=== PATIENT | male | born 1965 | race Caucasian/White ===

== ENCOUNTER 2017-11-15 20:13 | Emergency (ER) | payer BC, OTHER ==
[~2017-11-15] VITALS: Ht 167.6 cm; Wt 63.5 kg
--- NOTE | 2017-11-15 22:32 | ED Back Pain ---
General Chief Complaint: Back Problems Stated Complaint: HEADACHE/NECK PAIN/LOWER BACK PAIN Nursing Triage Note: pt reports neck, back et severe head pain starting 2 weeks ago et worsening since then. he was seen at [facility] yesterday et had labs drawn, urine tested et rx for imitrex. he had an injection of toradol, norflex, et benadryl while there with an oral dose of magnesium. Nursing Sepsis Screen: No Definite Risk (SADIA STOUT MD) History of Present Illness Date Seen by Provider: Nov 15, 2017 Time Seen by Provider: 22:28 Initial Comments The patient is a 51-year-old white male who presents with a chief complaint of low back pain. In addition he apparently has a migraine headache and some pain in his neck at this time. The pain began about 2 weeks ago without injury. There has steadily gotten worse. They went to [facility] yesterday and had some blood tests done. No specific diagnosis was given. He was given some analgesic Injections. These were not at all successful. He reports the pain to be at about the L3 4 range by pointing. There is no radiation to the buttocks or down the legs. There is no numbness or tingling. There is no present or past history of injury. Pain/Injury Location: Back, Neck Method of Injury: Unknown (SADIA STOUT MD) Initial Comments Discussed the case with Dr. Hayden and to control and then visit the patient is story includes 2 weeks of low back pain radiating outward. She is either side as well as upper neck pain that radiates to his also put and around the left side of his head to behind the left eye. It has been intermittent and tolerable with Excedrin and Advil but the last 2 days it has become constant and intolerable. He went to the [place] emergency department where he was told he had a migraine headache and was given a dose of sumatriptan and Toradol which did nothing for his pain and sent home with a prescription for sumatriptan which she has been using with no relief. He is having some nausea but no throwing up. No cough, edema fevers, chills, shortness of breath, chest pain, diarrhea. He does not have a history of migraines or headaches beyond the last 2 weeks. No other significant medical history. He does smoke about a pack and a half a day. Patient denies any weight loss or history of cancer, prostate problems, incontinence or urinary hesitancy or frequency. (YANA BLAKE) Allergies and Home Medications Allergies Coded Allergies: No Known Drug Allergies (Unverified , 11/16/17) Constitutional: see HPI EENTM: no symptoms reported Respiratory: no symptoms reported Cardiovascular: no symptoms reported Gastrointestinal: no symptoms reported Genitourinary: no symptoms reported Musculoskeletal: back pain Skin: no symptoms reported Psychiatric/Neurological: No Symptoms Reported, Headache (SADIA STOUT MD) Past Qirfwhn-Yovbsm-Kcaftc Hx Patient Social History Recent Foreign Travel: No Contact w/Someone Who Travel: No Recent Infectious Disease Expo: No (SADIA STOUT MD) Physical Exam Vital Signs Vital Sign - Last 12Hours 11/15/17 21:27 Temp 98.0 Pulse 87 Resp 16 B/P (MAP) 141/86 (104) (YANA BLAKE) Vital Signs Capillary Refill : Less Than 3 Seconds (SADIA STOUT MD) General Appearance: Mild Distress, Moderate Distress, Other (prefers positioning himself on right side with knees flexed and tucked up) HEENT: Normal ENT Inspection Neck: Normal Inspection Cardiovascular: Regular Rate, Rhythm, No Edema, No Gallop, No JVD, No Murmur, Normal Peripheral Pulses Respiratory: Decreased Breath Sounds, Other (heavy odor of cigarette products) Gastrointestinal: Normal Bowel Sounds, No Organomegaly, No Pulsatile Mass, Non Tender, Soft Back: Normal Inspection, No Vertebral Tenderness Extremity: Normal Capillary Refill, Normal Inspection, Normal Range of Motion, Non Tender, No Calf Tenderness, No Pedal Edema, Calf Tenderness Neurologic/Psychiatric: Alert, Oriented x3, No Motor/Sensory Deficits, Normal Mood/Affect, civil rights representative II-XII Norm as Tested, Abnormal Cerebellar Tests Skin: Normal Color, Warm/Dry, Cool, Cyanosis Lymphatic: No Adenopathy (SADIA STOUT MD) Progress/Results/Core Measures Results/Orders Lab Results Laboratory Tests Test 11/15/17 22:45 11/15/17 22:46 Range/Units Urine Color YELLOW Urine Clarity CLEAR Urine pH 8 5-9 Urine Specific Stafford 1.010 L 1.016-1.022 Urine Protein NEGATIVE NEGATIVE Urine Glucose (UA) NEGATIVE NEGATIVE Urine Ketones NEGATIVE NEGATIVE Urine Nitrite NEGATIVE NEGATIVE Urine Bilirubin NEGATIVE NEGATIVE Urine Urobilinogen NORMAL NORMAL MG/DL Urine Leukocyte Esterase NEGATIVE NEGATIVE Urine RBC (Auto) NEGATIVE NEGATIVE Urine RBC NONE /HPF Urine WBC RARE /HPF Urine Crystals NONE /LPF Urine Bacteria NEGATIVE /HPF Urine Casts NONE /LPF Urine Mucus NEGATIVE /LPF Urine Culture Indicated NO White Blood Count 9.8 4.3-11.0 10^3/uL Red Blood Count 5.22 4.35-5.85 10^6/uL Hemoglobin 16.8 13.3-17.7 G/DL Hematocrit 47 40-54 % Mean Corpuscular Volume 90 80-99 FL Mean Corpuscular Hemoglobin 32 25-34 PG Mean Corpuscular Hemoglobin Concent 36 32-36 G/DL Red Cell Distribution Width 14.6 H 10.0-14.5 % Platelet Count 268 130-400 10^3/uL Mean Platelet Volume 9.4 7.4-10.4 FL Neutrophils (%) (Auto) 59 42-75 % Lymphocytes (%) (Auto) 31 12-44 % Monocytes (%) (Auto) 7 0-12 % Eosinophils (%) (Auto) 2 0-10 % Basophils (%) (Auto) 1 0-10 % Neutrophils # (Auto) 5.8 1.8-7.8 X 10^3 Lymphocytes # (Auto) 3.1 1.0-4.0 X 10^3 Monocytes # (Auto) 0.7 0.0-1.0 X 10^3 Eosinophils # (Auto) 0.2 0.0-0.3 10^3/uL Basophils # (Auto) 0.1 0.0-0.1 10^3/uL Sodium Level 139 135-145 MMOL/L Potassium Level 3.8 3.6-5.0 MMOL/L Chloride Level 105 98-107 MMOL/L Carbon Dioxide Level 22 21-32 MMOL/L Anion Gap 12 5-14 MMOL/L Blood Urea Nitrogen 9 7-18 MG/DL Creatinine 0.85 0.60-1.30 MG/DL Estimat Glomerular Filtration Rate > 60 BUN/Creatinine Ratio 11 Glucose Level 92 70-105 MG/DL Calcium Level 9.3 8.5-10.1 MG/DL Total Bilirubin 0.5 0.1-1.0 MG/DL Aspartate Amino Transf (AST/SGOT) 17 5-34 U/L Alanine Aminotransferase (ALT/SGPT) 15 0-55 U/L Alkaline Phosphatase 97 40-136 U/L Total Protein 7.0 6.4-8.2 GM/DL Albumin 4.1 3.2-4.5 GM/DL (YANA BLAKE) My Orders Orders - YANA BLAKE Ct Head/Cervical Spine Wo (11/16/17 00:14) Ketorolac Injection (Toradol Injection) (11/16/17 00:15) Ondansetron Injection (Zofran Injectio (11/16/17 00:15) Saline Lock/Iv-Start (11/16/17 00:15) Fentanyl Injection (Sublimaze Injection (11/16/17 00:30) Fentanyl Injection (Sublimaze Injection (11/16/17 01:30) (YANA BLAKE) Medications Given in ED Current Medications Medications Dose Ordered Sig/Raphael Route Start Time Stop Time Status Last Admin Dose Admin Fentanyl Citrate 50 mcg ONCE ONCE IVP 11/16/17 00:30 11/16/17 00:31 DC 11/16/17 00:30 50 MCG Fentanyl Citrate 50 mcg ONCE ONCE IVP 11/16/17 01:30 11/16/17 01:31 DC 11/16/17 01:40 50 MCG Ketorolac Tromethamine 15 mg ONCE ONCE IVP 11/16/17 00:15 11/16/17 00:16 DC 11/16/17 00:30 15 MG Ondansetron HCl 4 mg ONCE ONCE IVP 11/16/17 00:15 11/16/17 00:16 DC 11/16/17 00:30 4 MG (YANA BLAKE) Vital Signs/I&O Vital Sign - Last 12Hours 11/15/17 21:27 Temp 98.0 Pulse 87 Resp 16 B/P (MAP) 141/86 (104) (YANA BLAKE) Blood Pressure Mean: 104 Progress Note #1: Time: 00:13 Progress Note Recent new onset of headaches that are not clearly migraines. No history of migraines. His back pain could be chronic as he does have historical low back pain but his headache although it has no neurologic red flags came on rather suddenly and is very strong and not responding to pain meds or crepitance. We' ll going to get a CT scan of his head Progress Note #2: Time: 02:10 Progress Note Patient's nausea is gone but his headache is still there constant. We have not been able to locate any source of infection, tumor, injury that would explain his headache. None of her medications for migraines or opiates or NSAIDs have made it didn't in his pain. Give him some more Phenergan and Benadryl helps at the sedative effect allow him to sleep this off. At the very least we've ruled out any dangerous infectious or surgical cause of his headache that needs to be addressed tonight. It is not getting any worse would have him follow-up with his primary care physician. This has been going on for 2 weeks so we'll give him strict return precautions as well as follow-up with his PCP next week. (YANA BLAKE) Diagnostic Imaging Diagonstic Imaging: Xray Plain Films/CT/US/NM/MRI: other (lumbar spine) Comments No fracture or subluxation of the lumbar vertebral spine. Vertebral body heights are maintained. Bowel gas pattern unremarkable. Reviewed: Reviewed by Me Diagonstic Imaging: CT Plain Films/CT/US/NM/MRI: head Comments CT head no acute intracranial abnormality CT C-spine no evidence of fracture or subluxation and moderate multilevel cervical spondylosis. Reviewed: Reviewed by Me (YANA BLAKE) Departure Impression Impression: Primary Impression: Headache Qualified Codes: R51 - Headache Disposition: 01 HOME, SELF-CARE Condition: Stable Departure-Patient Inst. Decision time for Depature: 02:12 (YANA BLAKE) Referrals: NO,LOCAL PHYSICIAN (PCP/Family) Primary Care Physician Patient Instructions: Headache, Adult (DC) Add. Discharge Instructions: Tylenol 1000 g every 8 hours and/or ibuprofen 800 mg every 8 hours. Get some rest and follow-up with your primary care physician Saturday morning. If your symptoms comes get worse or you begin to have new symptoms such as chest pain, fever, intractable nausea vomiting please return to the ER for further evaluation. You can use the Zofran every 6 hours as needed for nausea. All discharge instructions reviewed with patient and/or family. Voiced understanding. Scripts Ondansetron (Zofran Odt) 4 Mg Tab.rapdis 4 MG PO Q6H Y for NAUSEA/VOMITING-1ST LINE, #10 TAB 0 Refills Prov: YANA BLAKE 11/16/17 SADIA STOUT MD Nov 15, 2017 22:32 YANA BLAKE Nov 16, 2017 00:14
[2017-11-15 22:56] LABS: BILIRUBIN,URINE NEGATIVE (NEGATIVE); CLARITY,URINE CLEAR; COLOR,URINE YELLOW; GLUCOSE, URINE (UA) NEGATIVE (NEGATIVE); KETONES,URINE NEGATIVE (NEGATIVE); LEUKOCYTE ESTERASE ,URINE NEGATIVE (NEGATIVE); NITRITE,URINE NEGATIVE (NEGATIVE); PH,URINE 8 (5-9); PROTEIN,URINE NEGATIVE (NEGATIVE); UROBILINOGEN,URINE NORMAL (NORMAL)
[2017-11-15 22:57] LABS: BASOPHILS # (AUTO) 0.1 10^3/uL (0.0-0.1); BASOPHILS % (AUTO) 1 % (0-10); EOSINOPHILS # (AUTO) 0.2 10^3/uL (0.0-0.3); EOSINOPHILS % (AUTO) 2 % (0-10); HEMATOCRIT 47 % (40-54); HEMOGLOBIN 16.8 G/DL (13.3-17.7); LYMPHOCYTES # (AUTO) 3.1 X 10^3 (1.0-4.0); LYMPHOCYTES % (AUTO) 31 % (12-44); MEAN CORPUSCULAR HEMOGLOBIN 32 PG (25-34); MEAN CORPUSCULAR HGB CONC 36 G/DL (32-36); MEAN CORPUSCULAR VOLUME 90 FL (80-99); MEAN PLATELET VOLUME 9.4 FL (7.4-10.4); MONOCYTES # (AUTO) 0.7 X 10^3 (0.0-1.0); MONOCYTES % (AUTO) 7 % (0-12); NEUTROPHILS # (AUTO) 5.8 X 10^3 (1.8-7.8); NEUTROPHILS % (AUTO) 59 % (42-75); PLATELET COUNT 268 10^3/uL (130-400); RED BLOOD COUNT 5.22 10^6/uL (4.35-5.85); RED CELL DISTRIBUTION WIDTH 14.6 % (10.0-14.5); WHITE BLOOD COUNT 9.8 10^3/uL (4.3-11.0)
[2017-11-15 23:04] LABS: BACTERIA,URINE NEGATIVE /HPF; WBC,URINE RARE /HPF
[2017-11-15 23:19] LABS: ALANINE AMINOTRANSFERASE 15 U/L (0-55); ALBUMIN 4.1 GM/DL (3.2-4.5); ALKALINE PHOSPHATASE 97 U/L (40-136); BILIRUBIN,TOTAL 0.5 MG/DL (0.1-1.0); BUN/CREATININE RATIO 11; CALCIUM 9.3 MG/DL (8.5-10.1); CARBON DIOXIDE 22 MMOL/L (21-32); CHLORIDE 105 MMOL/L (98-107); CREATININE SERUM 0.85 MG/DL (0.60-1.30); GFR ESTIMATED > 60; GLUCOSE 92 MG/DL (70-105); POTASSIUM 3.8 MMOL/L (3.6-5.0); SODIUM 139 MMOL/L (135-145)
[2017-11-16] MEDS ORDERED: KETOROLAC 30 MG/ML VIAL IVP ONE (00:15)
[2017-11-16] MEDS ORDERED: ONDANSETRON 4 MG/2 ML (SDV) Z0FRAN IVP ONE (00:15)
[2017-11-16] MEDS ORDERED: fentaNYL INJECTION 100 MCG/2 ML AMP IVP ONE ×2 (00:30→01:30)
[2017-11-16] MEDS ORDERED: ONDA4TAB8 PO ×2 (02:15→02:35)
[2017-11-16] MEDS ORDERED: PROMETHAZINE INJ 25 MG/ML (PHENERGAN) AMP IVP ONE (02:15)
[2017-11-16] MEDS ORDERED: diphenhydrAMINE 50 MG/ML INJ (BENADRYL) IVP ONE (02:15)
[2017-11-16 02:40] VITALS: BP 135/74
--- NOTE | 2017-11-16 06:21 | Diagnostic Imaging Report ---
Clinical indication: Patient with headache and neck pain. No known injury. Exam: Head CT without IV contrast. Axial CT scan of the cervical spine with sagittal and coronal reformations. Comparison: None. Findings: Head CT: There is no evidence of acute cerebral infarct, intracranial hemorrhage, or gross mass effect. There is normal suarez-white matter distinction. The brain parenchymal volume appears appropriate for patient's age. There is no significant midline shift or herniation. There is no evidence of hydrocephalus. The basal cisterns are unremarkable. The skull, extracranial soft tissue, and orbits are unremarkable. There is mild mucosal thickening in both maxillary sinuses. Cervical spine: There is no acute cervical spine fracture or dislocation. There is multilevel cervical spine degenerative disease. There is suggestion of diffuse disc bulges at the C4-C5, C5-C6, and C6-C7 levels. There is uncinate spurs bilaterally at the C5-C6 and C6-C7 levels which cause moderate to severe bilateral C6-C7 neural foramen narrowing and moderate to severe left C5-C6 neural foramen narrowing. There is moderate loss of intervertebral disc height at the C5-C6 and C6-C7 levels. There is at least mild to moderate central canal narrowing at the C5-C6 and C6-C7 levels. There is no significant neck soft tissue abnormality. Visualized upper lung capps are clear. Impression: 1: Mild bilateral maxillary sinus disease. Otherwise unremarkable CT scan of the brain. 2: Multilevel cervical spine degenerative disease with no acute fracture or dislocation. MRI of the cervical spine would better evaluate degenerative disease. I agree with [employer] report. Dictated by: Dictated on workstation # [id number]
--- NOTE | 2017-11-16 07:03 | Diagnostic Imaging Report ---
CLINICAL INDICATION: Patient with low back pain and no known injury. EXAMINATION: X-ray of the lumbar spine, three views. COMPARISON: None. FINDINGS: There is no evidence of acute fracture or dislocation. There is subtle left curvature of the lumbar spine. There are hypertrophic anterior spurs seen throughout the lumbar spine which is most pronounced at the L1-L2 level. There is mild loss of intervertebral disc height at the L1-L2 level. Sacroiliac joints are unremarkable as visualized. The intervertebral disc heights are well maintained. Surgical clips are seen overlying the right upper quadrant which could be related to cholecystectomy changes. IMPRESSION: 1: Mild lumbar spine degenerative disease and subtle left curvature of the lumbar spine. 2: There is no acute fracture or dislocation of the lumbar spine. Dictated by: Dictated on workstation # [id number]
--- OUTSIDE RECORDS SUMMARY | 2017-11-17 09:29 | XMS REPORT ---
Author Author Raymond Lebron Organization [facility] Address [address] [place], [place] [id number] Care Team Providers Care Manager Food Beverage Name Role Phone Raymond Lebron PCP Unavailable Allergies and Adverse Reactions Name Reaction Notes SULFA (SULFONAMIDES) Plan of Treatment Planned Activity Comments Planned Date Planned Time Plan/Goal X-ray of pelvis, one or two views 05/21/2017 12:00 AM Hemoglobin A1c measurement 05/21/2017 12:00 AM PSA TOTAL 05/21/2017 12:00 AM Medications Active Name Start Date Estimated Completion Date SIG Comments naproxen 500 mg oral tablet take 1 tablet (500 mg) by oral route 2 times per day as needed atenolol 25 mg oral tablet take 1 tablet (25 mg) by oral route once daily tramadol 50 mg oral tablet 05/13/2017 take 1 tablet (50 mg) by oral route every 6 hours as needed Neurontin 100 mg oral capsule 05/21/2017 05/28/2017 take one tab PO TID Problem List Not available. Vital Signs Date Time BP-Sys(mm[Hg] BP-Maria Del Carmen(mm[Hg]) HR(bpm) RR(rpm) Temp WT HT HC BMI BSA BMI Percentile O2 Sat(%) 05/21/2017 10:31:00 AM 118 mmHg 80 mmHg 83 bpm 18 rpm 98 F 130 lbs 66 in 20.98 kg/m2 1.66 m2 99 % 05/13/2017 1:31:00 PM 122 mmHg 78 mmHg 74 bpm 16 rpm 97 F 141.5 lbs 66 in 22.8385 kg/m 1.7288 m 99 % Social History Name Description Comments Tobacco Current every day smoker Alcohol Use - Occasional [employer] Worker History of Procedures Not available. Results Summary Not available. History Of Immunizations Not available. History of Past Illness Name Date of Onset Comments Heart murmur Right groin pain May 13 2017 1:38PM Groin pain May 21 2017 11:04AM Glycosuria May 21 2017 11:59AM BPH (benign prostatic hyperplasia) May 21 2017 11:59AM Screening for prostate cancer May 21 2017 11:59AM Payers Insurance Name Company Name Plan Name Plan Number Policy Number Policy Group Number Start Date [facility] [id number] N/A History of Encounters Visit Date Visit Type Provider 05/21/2017 Office visit Raymond Lebron MD 05/13/2017 Office visit Alexi Schmidt APRN 12/15/2015 [facility] Dk Ye MD 02/04/2015 [facility] Dk Ye MD 05/11/2012 [facility] Dk Ye MD 10/26/2011 [facility] Leonel Waters MD
--- OUTSIDE RECORDS SUMMARY | 2017-11-17 09:29 | XMS REPORT ---
Author Author Alexi Schmidt [facility] Address [address] [place], [place] [id number] Care Team Providers Care Middleware Developer Name Role Phone Alexi Schmidt PCP Allergies and Adverse Reactions Name Reaction Notes SULFA (SULFONAMIDES) Plan of Treatment Not available. Medications Active Name Start Date Estimated Completion Date SIG Comments atenolol 25 mg oral tablet take 1 tablet (25 mg) by oral route once daily diclofenac sodium 50 mg oral tablet,delayed release (DR/EC) 06/11/2017 take 1 tablet (50 mg) by oral route 3 times per day cyclobenzaprine 10 mg oral tablet 06/11/2017 take 1 tablet (10 mg) by oral route 2 times per day Name Start Date Expiration Date SIG Comments naproxen 500 mg oral tablet take 1 tablet (500 mg) by oral route 2 times per day as needed Neurontin 100 mg oral capsule 05/21/2017 05/28/2017 take one tab PO TID Discontinued Name Start Date Discontinued Date SIG Comments baclofen 10 mg oral tablet 05/28/2017 06/11/2017 take 1 tablet (10 mg) by oral route 3 times per day tramadol 50 mg oral tablet 05/28/2017 06/11/2017 take 1 tablet (50 mg) by oral route every 6 hours as needed Problem List Description Status Onset Glucosuria Active 05/21/2017 Groin pain, right Active 05/21/2017 Current smoker Active 05/21/2017 Vital Signs Date Time BP-Sys(mm[Hg] BP-Maria Del Carmen(mm[Hg]) HR(bpm) RR(rpm) Temp WT HT HC BMI BSA BMI Percentile O2 Sat(%) 06/11/2017 2:14:00 PM 120 mmHg 70 mmHg 82 bpm 16 rpm 142 lbs 66 in 22.92 kg/m2 1.73 m2 99 % 05/28/2017 8:25:00 AM 118 mmHg 78 mmHg 93 bpm 20 rpm 96.3 F 137.25 lbs 66 in 22.1525 kg/m 1.7027 m 90 % 05/21/2017 10:31:00 AM 118 mmHg 80 mmHg 83 bpm 18 rpm 98 F 130 lbs 66 in 20.98 kg/m2 1.66 m2 99 % 05/13/2017 1:31:00 PM 122 mmHg 78 mmHg 74 bpm 16 rpm 97 F 141.5 lbs 66 in 22.8385 kg/m 1.7288 m 99 % Social History Name Description Comments Tobacco Current every day smoker Alcohol Use - Occasional [employer] Worker History of Procedures Date Ordered Description Order Status 05/21/2017 12:00 AM X-RAY EXAM OF PELVIS Reviewed 05/21/2017 12:00 AM GLYCOSYLATED HEMOGLOBIN TEST Reviewed 05/21/2017 12:00 AM ASSAY OF PSA TOTAL Reviewed 05/21/2017 2:06 PM URINALYSIS AUTO W/O SCOPE Reviewed 06/11/2017 12:00 AM AUTOMATED DIFF WBC COUNT Reviewed 06/11/2017 12:00 AM COMPREHEN METABOLIC PANEL Reviewed 06/11/2017 12:00 AM ASSAY OF MAGNESIUM Reviewed Results Summary Date and Description Results 05/21/2017 12:10 PM PSA TOTAL 2.280 ng/mLHGB A1C 5.60 %Est Avg Glucose 114.0 mg/ dL 05/21/2017 2:06 PM Clarity Ur CLEAR Color Ur ---- Glucose Ur-sCnc 2+ Bilirub Ur Ql Strip -VE Ketones Ur Ql Strip -VE Sp Gr Ur Qn 1015 Hgb Ur Ql Strip -VE pH Ur- LsCnc 6,0 Prot Ur Ql Strip -VE Urobilinogen Ur-mCnc -VE Nitrite Ur Ql Strip -VE WBC Est Ur Ql Strip -VE 06/11/2017 2:42 PM WBC 9.1 RBC 4.56 HGB 14.70 g/dLHCT 41.30 %MCV 91.0 fLMCH 32.20 pgMCHC 35.60 g/dLRDW SD 48 RDW CV 14.30 %MPV 8.90 fLPLT 267 NRBC# 0.00 NRBC% 0.0 %NEUT 56.70 %%LYMP 31.70 %%MONO 7.70 %%EOS 2.90 %%BASO 0.90 %#NEUT 5.17 #LYMP 2.89 #MONO 0.70 #EOS 0.26 #BASO 0.08 MANUAL DIFF NOT IND GLUCOSE 102.0 mg/dLSODIUM 141.0 mmol/LPOTASSIUM 4.0 mmol/LCHLORIDE 108.0 mmol/LCO2 27.0 mmol/LBUN 11.0 mg/dLCREATININE 0.80 mg/dLSGOT/AST 14.0 IU/LSGPT/ALT 13.0 IU/ LALK PHOS 86.0 IU/LTOTAL PROTEIN 6.60 g/dLALBUMIN 3.90 g/dLTOTAL BILI 0.30 mg/ dLCALCIUM 9.40 mg/dLAGE 51 GFR NonAA 102 GFR AA 124 eGFR >60 mL/min/1.73meGFR AA* >60 MAGNESIUM 2.0 mg/dL History Of Immunizations Not available. History of Past Illness Name Date of Onset Comments Heart murmur Glucosuria 05/21/2017 Groin pain, right 05/21/2017 Current smoker 05/21/2017 Right groin pain May 13 2017 1:38PM Groin pain May 21 2017 11:04AM Glycosuria May 21 2017 11:59AM BPH (benign prostatic hyperplasia) May 21 2017 11:59AM Screening for prostate cancer May 21 2017 11:59AM Groin pain, right May 21 2017 10:34AM Glucosuria May 21 2017 10:34AM Current smoker May 21 2017 10:34AM Groin pain, right Jun 11 2017 2:15PM Leg cramps Jun 11 2017 2:15PM Right groin pain May 28 2017 8:30AM Constipation, unspecified constipation type Jun 11 2017 2:15PM Acute nonintractable headache, unspecified headache type Jun 11 2017 2:15PM Payers Insurance Name Company Name Plan Name Plan Number Policy Number Policy Group Number Start Date [facility] [id number] N/A History of Encounters Visit Date Visit Type Provider 06/11/2017 Office visit Alexi Schmidt APRN 05/28/2017 Office visit Alexi Schmidt APRN 05/21/2017 Office visit Raymond Lebron MD 05/13/2017 Office visit Alexi Schmidt APRN 12/15/2015 [facility] Dk Ye MD 02/04/2015 [facility] Dk Ye MD 05/11/2012 [facility] Dk Ye MD 10/26/2011 [facility] Leonel Waters MD
--- OUTSIDE RECORDS SUMMARY | 2017-11-17 09:29 | XMS REPORT ---
Author Author Raymond Lebron Organization [facility] Address [address] [place], [place] [phone] Care Team Providers Care Film Processing Supervisor Name Role Phone Raymond Lebron PCP Unavailable Allergies and Adverse Reactions Name Reaction Notes SULFA (SULFONAMIDES) Plan of Treatment Planned Activity Comments Planned Date Planned Time Plan/Goal X-ray of pelvis, one or two views 05/21/2017 12:00 AM Medications Active Name Start [...] 1:38PM Groin pain May 21 2017 11:04AM Payers Insurance Name Company Name Plan Name Plan Number Policy Number Policy Group Number [id number] History of Encounters Visit Date Visit Type Provider 05/21/2017 Office visit Raymond Lebron MD 05/13/2017 Office visit Alexi Schmidt APRN 12/15/2015 [facility] Dk Ye MD 02/04/2015 [facility] Dk Ye MD 05/11/2012 [facility] Dk Ye MD 10/26/2011 [facility] Leonel Waters MD
--- OUTSIDE RECORDS SUMMARY | 2017-11-17 09:29 | XMS REPORT | CCD ---
Author Author SATHYA LEAL Organization Unknown Address [address] [facility] [address] [place] [address] Care Team Providers Care Developer Automatic Name Role Phone IGOR RICK MD Attphys IGOR RICK MD Prisurg Allergies Allergy Code Allergy Type Reaction Status SULFA (sulfonamide) 0 Drug allergy RASH Active BACTRIM 726075 Drug allergy Active Active Medications Unknown or Not Available. Problems Problem Code Start Date Resolved Date Status CVA (CEREBRAL INFARCTION) 83844 05/13/2012 Active CONVERSION REACTION 37532 05/13/2012 Active Procedures Procedure Code Procedure Type Date ^CBC W/AUTO DIFF 4107559 SNOMED CT 10/26/2016 INFLUENZA A & B 916238588 SNOMED CT 10/26/2016 C REACTIVE PROTEIN 92109884 SNOMED CT 10/26/[address] 10/26/[address] 10/26/2016 COMPREHENSIVE METABOLIC PANEL 169038672 SNOMED CT 2016 CBC W/ AUTO DIFF (RFLX MAN DIFF IF IND) 1836944 SNOMED CT 10/26/2016 Results AMYLASE - Collect Date/Time: 10/26/2016 03:15 Test Name Code Test Result Test Units Test Ref Range AMYLASE 1798-8 51 IU/L L=25 H=125 COMPREHENSIVE METABOLIC PANEL - Collect Date/Time: 10/26/2016 03:15 Test Name Code Test Result Test Units Test Ref Range GLUCOSE 2345-7 124 MG/DL L=70 H=100 SODIUM 2951-2 140 MEQ/L L=135 H=148 POTASSIUM 2823-3 3.3 MEQ/L L=3.5 H=5.3 CHLORIDE 2075-0 104 MEQ/L L=96 H=110 CO2 2028-9 25 MEQ/L L=22 H=29 BUN 3094-0 7 MG/DL L=8 H=22 CREATININE 2160-0 0.8 MG/DL L=0.6 H=1.6 SGOT/AST 1920-8 12 IU/L L=10 H=40 SGPT/ALT 1742-6 9 IU/L L=8 H=54 ALK PHOS 6768-6 109 IU/L L=35 H=115 TOTAL PROTEIN 2885-2 6.4 G/DL L=5.5 H=8.5 ALBUMIN 1751-7 3.8 G/DL L=3.1 H=5.4 TOTAL BILI 1975-2 0.3 MG/DL L=0.0 H=1.5 CALCIUM 16732-4 8.6 MG/DL L=8.2 H=10.6 AGE 50 yrs GFR NonAA 103 GFR AA 125 eGFR >60 N/A eGFR AA* >60 N/A LIPASE - Collect Date/Time: 10/26/2016 03:15 Test Name Code Test Result Test Units Test Ref Range LIPASE 3040-3 16 U/L L=8 H=78 CBC W/ AUTO DIFF (RFLX MAN DIFF IF IND) - Collect Date/Time: 10/26/2016 03:15 Test Name Code Test Result Test Units Test Ref Range WBC 88074-3 10.9 TH/CMM L=4.5 H=10.8 RBC 789-8 4.93 ML/CMM L=4.70 H=6.10 HGB 718-7 15.2 G/DL L=14.0 H=18.0 HCT 4544-3 44.5 % L=42.0 H=52.0 MCV 90 FL L=81 H=99 MCH 30.8 PG L=27.0 H=33.0 MCHC 34.2 G/DL L=31.0 H=36.0 RDW SD 45 FL L=36 H=50 RDW CV 13.5 % L=0.0 H=14.8 MPV 9.0 FL L=9.3 H=12.5 PLT 777-3 292 TH/CMM L=130 H=440 NRBC# 0.00 TH/CMM L=0.00 H=0.00 NRBC% 0.0 /100WBC L=0.0 H=2.0 %NEUT 78.3 % %LYMP 15.8 % %MONO 4.2 % %EOS 0.8 % %BASO 0.6 % #NEUT 8.54 TH/CMM L=2.10 H=8.20 #LYMP 1.73 TH/CMM L=0.90 H=5.20 #MONO 0.46 TH/CMM L=0.16 H=1.00 #EOS 0.09 TH/CMM L=0.00 H=0.80 #BASO 0.07 TH/CMM L=0.00 H=0.20 MANUAL DIFF NOT IND N/A INFLUENZA A & B - Collect Date/Time: 10/26/2016 03:10 Test Name Code Test Result Test Units Test Ref Range INFLUENZA A & B 6437-8 NO INFLUENZA A OR B DETECTED N/A C REACTIVE PROTEIN - Collect Date/Time: 10/26/2016 03:15 Test Name Code Test Result Test Units Test Ref Range C REACTIVE PROTEIN 1988-5 <0.5 MG/DL L=0.0 H= 1.0 Function Status Unknown or Not Available. History of Immunizations Immunization Code Date Influenza, seasonal, injectable 141 10/27/2011 Plan of Treatment Unknown or Not Available. Social History Smoking Status Code Start Date End Date Current every day smoker 209923119 Vital Signs Unknown or Not Available. Function Status Unknown or Not Available. Goals Unknown or Not Available. ASSESSMENTS Unknown or Not Available. Health Concerns Section Unknown or Not Available.
--- OUTSIDE RECORDS SUMMARY | 2017-11-17 09:30 | XMS REPORT ---
Author Author Raymond Lebron Organization [facility] Address [address] [place], [place] [address] Care Team Providers Care Loftsman/Woman Name Role Phone Raymond Lebron PCP Unavailable [...] take one tab PO TID Problem List Description Status Onset Glucosuria Active [...] - Occasional [employer] Worker History of Procedures Date Ordered Description Order Status 05/21/2017 12:00 AM X-RAY EXAM OF PELVIS Reviewed 05/21/2017 12:00 AM GLYCOSYLATED HEMOGLOBIN TEST Reviewed 05/21/2017 12:00 AM ASSAY OF PSA TOTAL Reviewed 05/21/2017 2:06 PM URINALYSIS AUTO W/O SCOPE Reviewed Results Summary Date and Description Results [...] -VE WBC Est Ur Ql Strip -VE History Of Immunizations Not available. History of [...] 10:34AM Current smoker May 21 2017 10:34AM Payers Insurance Name Company Name Plan Name Plan Number Policy Number Policy Group Number Start Date [facility] [id number] N/A History of Encounters Visit Date Visit Type Provider 05/21/2017 Office visit Raymond Lebron MD 05/13/2017 Office visit Alexi Schmidt APRN 12/15/2015 [facility] Dk Ye MD 02/04/2015 [facility] Dk Ye MD 05/11/2012 [facility] Dk Ye MD 10/26/2011 [facility] Leonel Waters MD
--- OUTSIDE RECORDS SUMMARY | 2017-11-17 09:30 | XMS REPORT | CCD ---
Author Author CHRIS AYALA Organization Unknown Address [address] [facility] [address] [place], [place] [phone] Care Team Providers Care Inspector Heating And Refrigeration Name Role Phone HANDSHY ER, JOSLYN WATERS Attphys HANDSHY ER, JOSLYN WATERS Prisurg Vital Signs Unknown or Not Available. Allergies Unknown or Not Available. Procedures Procedure Code Procedure Type Date .[place]ZO QU[place] 865382397 SNOMED CT 02/04/2015 CERVICAL SPINE; 2 VIEWS OR [address] HEAD W/O CONTRAST 195678580 SNOMED CT 02/04/2015 ^CBC W/AUTO DIFF 1545368 SNOMED CT 02/04/2015 RAPID DRUG SCREEN 518505585 SNOMED CT 02/04/2015 URINALYSIS ONLY 415051782 SNOMED [address] 02/04/[address] 02/04/2015 LACTIC ACID 2039429 SN[address] 02/04/2015 CULTURE BLOOD 36297535 SNOMED CT 02/04/2015 TROPONIN-I ADV 134735549 SNOMED CT 02/04/2015 COMPREHENSIVE METABOLIC PANEL 728758072 SNOMED CT 2014 CBC W/ AUTO DIFF (RFLX MAN DIFF IF IND) 9669290 SNOMED CT 02/04/2015 History of Immunizations Unknown or Not Available. Problems Unknown or Not Available. Results COMPREHENSIVE METABOLIC PANEL - Collect Date/Time: 02/04/2015 18:20 Test Name Code Test Result Test Units Test Ref Range GLUCOSE 2345-7 224 MG/DL L=70 H=100 SODIUM 2951-2 137 MEQ/L L=135 H=148 POTASSIUM 2823-3 3.4 MEQ/L L=3.5 H=5.3 CHLORIDE 2075-0 105 MEQ/L L=96 H=110 CO2 2028-9 21 MEQ/L L=22 H=29 BUN 3094-0 15 MG/DL L=8 H=22 CREATININE 2160-0 1.0 MG/DL L=0.6 H=1.6 SGOT/AST 1920-8 18 IU/L L=10 H=40 SGPT/ALT 1742-6 16 IU/L L=8 H=54 ALK PHOS 6768-6 78 IU/L L=35 H=115 TOTAL PROTEIN 2885-2 6.4 G/DL L=5.5 H=8.5 ALBUMIN 1751-7 4.2 G/DL L=3.1 H=5.4 TOTAL BILI 1975-2 0.8 MG/DL L=0.0 H=1.5 CALCIUM 55277-8 8.8 MG/DL L=8.2 H=10.6 AGE 49 yrs GFR NonAA 80 GFR AA 97 eGFR >60 N/A eGFR AA* >60 N/A ALCOHOL - Collect Date/Time: 02/04/2015 18:20 Test Name Code Test Result Test Units Test Ref Range ETHANOL 5640-8 <10 MG/DL RAPID DRUG SCREEN - Collect Date/Time: 02/04/2015 18:27 Test Name Code Test Result Test Units Test Ref Range Cannabinoids (THC) NEGATIVE N/A NEG: < 50 ng/ ml Phencyclidine (PCP) NEGATIVE N/A NEG: < 25 ng/ ml Cocaine NEGATIVE N/A NEG: < 300 ng/ml Methamphetamine NEGATIVE N/A NEG: < 1000 ng/ml Opiates NEGATIVE N/A NEG: < 300 ng/ml Amphetamine NEGATIVE N/A NEG: < 1000 ng/ml Benzodiazepines NON-NEGATIVE N/A NEG: < 300 ng/ ml Tricyclic Antidepres NEGATIVE N/A NEG: < 300 ng/ ml Methadone NEGATIVE N/A NEG: < 300 ng/ml Barbiturates NEGATIVE N/A NEG: < 200 ng/ml Oxycodone NEGATIVE N/A NEG: < 100 ng/ml Propoxyphene (PPX) NEGATIVE N/A NEG: < 300 ng/ ml CBC W/ AUTO DIFF (RFLX MAN DIFF IF IND) - Collect Date/Time: 02/04/2015 18:20 Test Name Code Test Result Test Units Test Ref Range WBC 03800-7 9.0 TH/CMM L=4.5 H=10.8 RBC 789-8 5.23 ML/CMM L=4.70 H=6.10 HGB 718-7 16.9 G/DL L=14.0 H=18.0 HCT 4544-3 48.4 % L=42.0 H=52.0 MCV 93 FL L=81 H=99 MCH 32.3 PG L=27.0 H=33.0 MCHC 34.9 G/DL L=31.0 H=36.0 RDW SD 48 FL L=36 H=50 RDW CV 14.0 % L=0.0 H=14.8 MPV 9.6 FL L=9.3 H=12.5 PLT 777-3 220 TH/CMM L=130 H=440 NRBC# 0.00 TH/CMM L=0.00 H=0.00 NRBC% 0.0 /100WBC L=0.0 H=2.0 %NEUT 67.0 % %LYMP 25.0 % %MONO 5.7 % %EOS 1.9 % %BASO 0.4 % #NEUT 6.01 TH/CMM L=2.10 H=8.20 #LYMP 2.24 TH/CMM L=0.90 H=5.20 #MONO 0.51 TH/CMM L=0.16 H=1.00 #EOS 0.17 TH/CMM L=0.00 H=0.80 #BASO 0.04 TH/CMM L=0.00 H=0.20 MANUAL DIFF NOT IND N/A URINALYSIS ONLY - Collect Date/Time: 02/04/2015 18:27 Test Name Code Test Result Test Units Test Ref Range COLOR YELLOW N/A NL: YELLOW APPEARANCE CLEAR N/A NL: CLEAR SPEC GRAV 1.010 N/A NL: 1.002 - 1.022 pH 6.0 N/A NL: 5 - 9 PROTEIN NEGATIVE N/A NL: NEGATIVE mg/dl GLUCOSE NEGATIVE N/A NL: NEGATIVE mg/dl KETONE 40 N/A NL: NEGATIVE mg/dl BILIRUBIN SMALL N/A NL: NEGATIVE BLOOD NEGATIVE N/A NL: NEGATIVE NITRITE NEGATIVE N/A NL: NEGATIVE LEUK SCREEN NEGATIVE N/A NL: NEGATIVE WBC/HPF RARE N/A NL: NEGATIVE RBC/HPF RARE N/A NL: NEGATIVE CASTS/LPF 1+ HYALINE N/A NL: NEGATIVE CRYSTALS TRACE AMORPH N/A NL: NEGATIVE MUCOUS THRDS FEW N/A NL: NEGATIVE BACTERIA FEW N/A NL: NEGATIVE EPITH CELLS FEW SQUAMOUS N/A NL: NEGATIVE TRICHOMONAS NEGATIVE N/A NL: NEGATIVE YEAST NEGATIVE N/A NL: NEGATIVE TROPONIN-I ADV - Collect Date/Time: 02/04/2015 18:20 Test Name Code Test Result Test Units Test Ref [place] 1978[address]-1 <0.04 ng/mL L=0.04 H= 0.40 LACTIC ACID - Collect Date/Time: 02/04/2015 18:20 Test Name Code Test Result Test Units Test Ref Range LACTIC ACID 2524-7 0.8 mmol/L L=0.5 H=1.6 Active Medications Unknown or Not Available. Medications Administered During Visit Unknown or Not Available. Encounters Encounter Diagnosis Diagnosis Code Start Date DEPRESSIVE DISORDER NEC 311 02/04/2015 Social History Smoking Status Code Start Date End Date Current every day smoker [id number] Patient Decision Aids Unknown or Not Available. Discharge Instructions You were admitted to [facility] on 02/04/2015 with a principal diagnosis of DEPRESSIVE DISORDER NEC. You were discharged from [facility] on 02/04/2015. Should you have any questions prior to discharge, please contact a member of your healthcare team. If you have left the hospital and have any questions, please contact your primary care physician. Chief Complaint and Reason For Visit Chief Complaint Date of Onset UNRESPONSIVE Function Status Unknown or Not Available. Referral/Transition of Care Unknown or Not Available.
--- OUTSIDE RECORDS SUMMARY | 2017-11-17 09:30 | XMS REPORT ---
Author Author Alexi Schmidt [facility] Address [address] [place], [place] [address] Care Team Providers Care Refrigeration Brazer/Solderer Name Role Phone Alexi Schmidt PCP Allergies [...] every day smoker Alcohol Use - Occasional [employer] Worker History of Procedures Date Ordered Description Order Status 05/21/2017 12:00 AM X-RAY EXAM OF PELVIS Reviewed 05/21/2017 12:00 AM GLYCOSYLATED HEMOGLOBIN TEST Reviewed 05/21/2017 12:00 AM ASSAY OF PSA TOTAL Reviewed 05/21/2017 2:06 PM URINALYSIS AUTO W/O SCOPE Reviewed 06/11/2017 12:00 AM AUTOMATED DIFF WBC COUNT Returned 06/11/2017 12:00 AM COMPREHEN METABOLIC PANEL Returned 06/11/2017 12:00 AM ASSAY OF MAGNESIUM Returned Results Summary Date and Description Results 05/21/2017 [...] Right groin pain May 28 2017 8:30AM Payers Insurance Name Company Name Plan Name Plan Number Policy Number Policy Group Number Start Date [facility] [id number] N/A History of Encounters Visit Date Visit Type Provider 06/11/2017 Office visit Alexi Schmidt APRN 05/28/2017 Office visit Alexi Schmidt APRN 05/21/2017 Office visit Raymond Lebron MD 05/13/2017 Office visit Alexi Schmidt APRN 12/15/2015 [facility] Dk Ye MD 02/04/2015 [facility] Dk Ye MD 05/11/2012 [facility] Dk Ye MD 10/26/2011 [facility] Leonel Waters MD
--- OUTSIDE RECORDS SUMMARY | 2017-11-17 09:30 | XMS REPORT | Continuity of Care Document ---
Author Author [facility] Address Unknown Phone Unavailable Allergies There is no data. Medications There is no data. Problems There is no data. Procedures There is no data. Results There is no data. Encounters ACCT No. Visit Date/Time Discharge Status Pt. Type Provider Facility Loc./Unit Complaint [id number] 06/11/2017 15:07:07 06/11/2017 23:59:59 CLS Outpatient Alexi Schmidt [id number] 05/28/2017 09:19:00 05/28/2017 23:59:59 CLS Outpatient Alexi Schmidt [id number] 05/22/2017 11:41:18 05/22/2017 23:59:59 CLS Outpatient Raymond Lebron [id number] 05/13/2017 14:29:39 05/13/2017 23:59:59 CLS Outpatient Alexi Schmidt [id number] 01/18/2016 15:57:40 01/18/2016 23:59:59 CLS Outpatient Dk Ye [id number] 05/30/2015 22:28:50 05/30/2015 23:59:59 CLS Outpatient Dk Ye
--- OUTSIDE RECORDS SUMMARY | 2017-11-17 09:30 | XMS REPORT ---
Author Author Alexi Schmidt [facility] Address [address] [place], [place] [address] Care Team Providers Care Lower School Spanish Teacher Name Role Phone Alexi Schmidt PCP Allergies [...] every 6 hours as needed Problem List Not available. Vital Signs Date Time BP-Sys(mm[Hg] BP-Maria Del Carmen(mm[Hg]) HR(bpm) RR(rpm) Temp WT HT HC BMI BSA BMI Percentile O2 Sat(%) 05/13/2017 1:31:00 PM 122 mmHg 78 mmHg 74 bpm 16 rpm 97 F 141.5 lbs 66 in 22.84 kg/m2 1.73 m2 99 % Social History Name Description Comments Tobacco Current every day smoker Alcohol Use - Occasional [employer] Worker History of Procedures Not available. Results Summary Not available. History Of Immunizations Not available. History of Past Illness Name Date of Onset Comments Heart murmur Right groin pain May 13 2017 1:38PM Payers Insurance Name Company Name Plan Name Plan Number Policy Number Policy Group Number [id number] N/A History of Encounters Visit Date Visit Type Provider 05/13/2017 Office visit Alexi Schmidt APRN 12/15/2015 [facility] Dk Ye MD 02/04/2015 [facility] Dk Ye MD 05/11/2012 [facility] Dk Ye MD 10/26/2011 [facility] Leonel Waters MD
== END 2017-11-16 02:40 | disposition home or self-care (01) ==
LOC: ER 20:17
DX: R51 Headache (principal); M54.5 Low back pain
CPT/HCPCS: 36415; 70450; 72100; 72125; 80053; 81000; 85025

== ENCOUNTER → 2019-08-25 | Outpatient (CLI) | payer BC ==
[~2019-08-25] MED LIST: CATHETER FLUSH 10 ML SYR IV PRN; HOLD METFORMIN - RECEIVED CONTRAST 20 ML VIAL IV SCH; IOHEXOL 350 MG/ML 100 ML (OMNIPAQUE 350) VIAL IV ONE; NS 100 ML (IVPB) BAG IV ONE; ONDA4TAB8 PO
[2019-08-25 10:26] LABS: BASOPHILS # (AUTO) 0.1 10^3/uL (0.0-0.1); BASOPHILS % (AUTO) 1 % (0-10); EOSINOPHILS # (AUTO) 0.1 10^3/uL (0.0-0.3); EOSINOPHILS % (AUTO) 1 % (0-10); HEMATOCRIT 46 % (40-54); HEMOGLOBIN 15.3 G/DL (13.3-17.7); LYMPHOCYTES # (AUTO) 2.2 X 10^3 (1.0-4.0); LYMPHOCYTES % (AUTO) 23 % (12-44); MEAN CORPUSCULAR HEMOGLOBIN 31 PG (25-34); MEAN CORPUSCULAR HGB CONC 34 G/DL (32-36); MEAN CORPUSCULAR VOLUME 93 FL (80-99); MEAN PLATELET VOLUME 8.7 FL (7.4-10.4); MONOCYTES # (AUTO) 0.7 X 10^3 (0.0-1.0); MONOCYTES % (AUTO) 7 % (0-12); NEUTROPHILS # (AUTO) 6.5 X 10^3 (1.8-7.8); NEUTROPHILS % (AUTO) 68 % (42-75); PLATELET COUNT 276 10^3/uL (130-400); RED CELL DISTRIBUTION WIDTH 14.6 % (10.0-14.5); WHITE BLOOD COUNT 9.5 10^3/uL (4.3-11.0)
[2019-08-25 10:43] LABS: BUN/CREATININE RATIO 9; CREATININE SERUM 0.82 MG/DL (0.60-1.30); GFR ESTIMATED > 60
--- NOTE | 2019-08-25 11:32 | Diagnostic Imaging Report ---
PROCEDURE: CT angiography of the chest with contrast. TECHNIQUE: Multiple contiguous axial images were obtained through the chest after uneventful bolus administration of intravenous contrast. 3D reconstructed CTA MIP acquisitions were also performed. Auto Exposure Controls were utilized during the CT exam to meet ALARA standards for radiation dose reduction. INDICATION: Shortness of breath, chest pain, difficulty breathing and asthma. FINDINGS: There is some mild centrilobular emphysematous disease. There are no discrete pulmonary nodules or masses. There is some minimal scarring in the right lung base. There is no pleural or pericardial fluid. There is no pneumothorax. The thoracic aorta is normal in caliber without evidence of dissection. There are no filling defects within the pulmonary arteries to suggest pulmonary embolism. There is no pathologically enlarged adenopathy in the chest. The visualized intra-abdominal structures are unremarkable. There is mild diffuse thoracic spondylosis. IMPRESSION: No evidence of pulmonary embolism or aortic dissection. Centrilobular emphysematous disease with some minimal scarring in the right lung base. Degenerative changes in the spine. Dictated by: Dictated on workstation # [id number]
== END ==
LOC: LAB 10:15
PROVIDERS: ATTEND Internal Medicine Critical Care Medicine
DX: J98.4 Other disorders of lung (principal); Z72.0 Tobacco use
CPT/HCPCS: 36415; 71275; 82565; 84520; 85025

== ENCOUNTER 2020-05-06 10:35 | Emergency (ER) | payer BC ==
[~2020-05-06] VITALS: Ht 167 cm; Wt 63.9 kg
[~2020-05-06 10:35] MED LIST changes: -CATHETER FLUSH 10 ML SYR IV PRN; -HOLD METFORMIN - RECEIVED CONTRAST 20 ML VIAL IV SCH; -IOHEXOL 350 MG/ML 100 ML (OMNIPAQUE 350) VIAL IV ONE; -NS 100 ML (IVPB) BAG IV ONE
[2020-05-06] MEDS ORDERED: ASPIRIN 81 MG CHEW (CHILDREN'S ASA) PO ONE (10:45)
[2020-05-06 10:57] LABS: BASOPHILS # (AUTO) 0.1 10^3/uL (0.0-0.1); BASOPHILS % (AUTO) 1 % (0-10); EOSINOPHILS # (AUTO) 0.1 10^3/uL (0.0-0.3); EOSINOPHILS % (AUTO) 1 % (0-10); HEMATOCRIT 51 % (40-54); HEMOGLOBIN 17.8 G/DL (13.3-17.7); LYMPHOCYTES # (AUTO) 2.4 X 10^3 (1.0-4.0); LYMPHOCYTES % (AUTO) 24 % (12-44); MEAN CORPUSCULAR HEMOGLOBIN 32 PG (25-34); MEAN CORPUSCULAR HGB CONC 35 G/DL (32-36); MEAN CORPUSCULAR VOLUME 91 FL (80-99); MEAN PLATELET VOLUME 8.9 FL (7.4-10.4); MONOCYTES # (AUTO) 0.6 X 10^3 (0.0-1.0); MONOCYTES % (AUTO) 6 % (0-12); NEUTROPHILS # (AUTO) 6.6 X 10^3 (1.8-7.8); NEUTROPHILS % (AUTO) 68 % (42-75); PLATELET COUNT 285 10^3/uL (130-400); RED CELL DISTRIBUTION WIDTH 14.9 % (10.0-14.5); WHITE BLOOD COUNT 9.8 10^3/uL (4.3-11.0)
[2020-05-06] MEDS ORDERED: ALBU2.5V4 (11:04)
[2020-05-06] MEDS ORDERED: DILT240C53 (11:04)
[2020-05-06] MEDS ORDERED: BUDE10.2 (11:04)
[2020-05-06] MEDS ORDERED: ATEN50TA (11:04)
[2020-05-06] MEDS ORDERED: TIOT4MIS2 (11:04)
--- NOTE | 2020-05-06 11:05 | Diagnostic Imaging Report ---
INDICATION: Shortness of air. Time of exam 10:50 AM No prior studies are available for comparison. The heart size is normal. The pulmonary vascularity is unremarkable. The lungs are clear. No infiltrate, effusion or pneumothorax is detected. Impression: No acute cardiopulmonary process is detected. Dictated by: Dictated on workstation # [id number]
--- NOTE | 2020-05-06 11:07 | NUR ---
JACOB HERE OVER TO SEE THE PTIlene
[2020-05-06 11:14] LABS: PROTHROMBIN TIME PATIENT 13.2 SEC (12.2-14.7)
--- NOTE | 2020-05-06 11:14 | ED Cough/URI ---
General Chief Complaint: Respiratory Problems Stated Complaint: SOA Nursing Triage Note: ARRIVED VIA AMB FROM DR ORELLANA OFFICE. COMPLAINS OF INCREASED SOA OVER THE LAST SEVERAL WEEKS. PT STATES HE NEEDS HELP FIGURING OUT WHAT HE HAS SO HE CAN GET ON DISSABILITY. STATES HE HAS BEEN MISSING WORK AND IS "ABOUT TO BE FIRED". ALSO STATES HE HAS NO AIR IN HIS HOME. Sepsis Screen: No Definite Risk Source: patient Exam Limitations: no limitations History of Present Illness Date Seen by Provider: May 06, 2020 Time Seen by Provider: 11:09 Initial Comments To ER from Dr. Nunez's office where he had an appointment for shortness of breath. He reported more shortness of breath than usual so they referred him to the emergency room. Dr. Nunez is out of town. States he needs help figuring out what he has to do to get on disability because he's been missing a lot of work and about to get fired and has no air conditioning in his home. He continues to smoke cigarettes. Timing/Duration: constant Severity/Quality: mild Associated Symptoms: cough, shortness of breath Allergies and Home Medications Allergies Coded Allergies: Sulfa (Sulfonamide Antibiotics) (Verified Allergy, Unknown, 05/06/20) Home Medications Cefuroxime Axetil 250 Mg Tablet, 250 MG PO BID Prescribed by: JACOB SANDERS on 05/06/20 1115 Ondansetron 4 Mg Tab.rapdis, 4 MG PO Q6H PRN for NAUSEA/VOMITING-1ST LINE Prescribed by: YANA BLAKE on 11/16/17 0235 Prednisone 20 Mg Tab, 40 MG PO DAILY Prescribed by: JACOB SANDERS on 05/06/20 1115 Patient Home Medication List Home Medication List Reviewed: Yes Review of Systems Review of Systems Constitutional: see HPI EENTM: see HPI Respiratory: see HPI, cough, short of breath Genitourinary: no symptoms reported Musculoskeletal: no symptoms reported Skin: no symptoms reported Psychiatric/Neurological: No Symptoms Reported Hematologic/Lymphatic: No Symptoms Reported Immunological/Allergic: no symptoms reported Past Kdklxkt-Rgugej-Mgfktl Hx Patient Social History Recent Foreign Travel: No Contact w/Someone Who Travel: No Recent Infectious Disease Expo: No Recent Hopitalizations: No Seasonal Allergies Seasonal Allergies: No Physical Exam Vital Signs - First Documented 05/06/20 10:40 Temp 36.7 Pulse 61 Resp 16 B/P (MAP) 158/83 (108) Pulse Ox 100 O2 Delivery Room Air Capillary Refill : Less Than 3 Seconds Height: 5'6.00" Weight: 140lbs. oz. 63.779100uk; 22.00 BMI Method:Stated General Appearance: WD/WN, no apparent distress, other (no distress. Oxygen 100% on room air. Speaks in full sentences. When taxing on his phone and distracted his respiratory rate is normal. However when I begin conversation with him and asked him what is going on his respiratory rate increases to about 30/m. Oxygen saturation remains 100% on room air. Lung sounds are clear.) Respiratory: lungs clear, normal breath sounds, no respiratory distress, no accessory muscle use Cardiovascular: regular rate, rhythm, no murmur Gastrointestinal: normal bowel sounds, non tender, soft Extremities: normal range of motion, non-tender Neurologic/Psychiatric: alert, normal mood/affect, oriented x 3 Skin: normal color, warm/dry Progress/Results/Core Measures Suspected Sepsis Recent Fever Within 48 Hours: No Infection Criteria Present: None New/Unexplained Altered Menta: No Sepsis Screen: No Definite Risk SIRS Temperature: Pulse: 61 Respiratory Rate: 16 Laboratory Tests 05/06/20 10:48: White Blood Count 9.8 Blood Pressure 158 /83 Mean: 108 Laboratory Tests 05/06/20 10:48: INR Comment 1.0, Platelet Count 285 Results/Orders Lab Results Laboratory Tests Test 05/06/20 10:48 Range/Units White Blood Count 9.8 4.3-11.0 10^3/uL Red Blood Count 5.54 4.35-5.85 10^6/uL Hemoglobin 17.8 H 13.3-17.7 G/DL Hematocrit 51 40-54 % Mean Corpuscular Volume 91 80-99 FL Mean Corpuscular Hemoglobin 32 25-34 PG Mean Corpuscular Hemoglobin Concent 35 32-36 G/DL Red Cell Distribution Width 14.9 H 10.0-14.5 % Platelet Count 285 130-400 10^3/uL Mean Platelet Volume 8.9 7.4-10.4 FL Neutrophils (%) (Auto) 68 42-75 % Lymphocytes (%) (Auto) 24 12-44 % Monocytes (%) (Auto) 6 0-12 % Eosinophils (%) (Auto) 1 0-10 % Basophils (%) (Auto) 1 0-10 % Neutrophils # (Auto) 6.6 1.8-7.8 X 10^3 Lymphocytes # (Auto) 2.4 1.0-4.0 X 10^3 Monocytes # (Auto) 0.6 0.0-1.0 X 10^3 Eosinophils # (Auto) 0.1 0.0-0.3 10^3/uL Basophils # (Auto) 0.1 0.0-0.1 10^3/uL Prothrombin Time 13.2 12.2-14.7 SEC INR Comment 1.0 0.8-1.4 Activated Partial Thromboplast Time 28 24-35 SEC My Orders Orders - JACOB SANDERS COUNTERSINKER [employer]ANCE SCREW HOLE Cbc With Automated Diff (05/06/20 10:39) Magnesium (05/06/20 10:39) Chest 1 View, Ap/Pa Only (05/06/20 10:39) Ekg Tracing (05/06/20 10:39) Comprehensive Metabolic Panel (05/06/20 10:39) Myoglobin Serum (05/06/20 10:39) Protime With Inr (05/06/20 10:39) Partial Thromboplastin Time (05/06/20 10:39) O2 (05/06/20 10:39) Monitor-Rhythm Ecg Trace Only (05/06/20 10:39) Lipid Panel (05/07/20 06:00) Ed Iv/Invasive Line Start (05/06/20 10:39) BNP (05/06/20 10:39) Troponin I (05/06/20 10:39) Aspirin Chewable Tablet (Baby Aspirin Ch (05/06/20 10:45) Medications Given in ED Current Medications Medications Dose Ordered Sig/Raphael Route Start Time Stop Time Status Last Admin Dose Admin Aspirin 324 mg ONCE ONCE PO 05/06/20 10:45 05/06/20 10:46 DC 05/06/20 10:54 324 MG Vital Signs/I&O 05/06/20 10:40 Temp 36.7 Pulse 61 Resp 16 B/P (MAP) 158/83 (108) Pulse Ox 100 O2 Delivery Room Air Capillary Refill : Less Than 3 Seconds Blood Pressure Mean: 108 Diagnostic Imaging Diagonstic Imaging: Xray Plain Films/CT/US/NM/MRI: chest Comments NAME: CARMEN WHITE MED REC#: [id number] PT STATUS: REG ER : 1965 PHYSICIAN: JACOB SANDERS APRN ADMIT DATE: 05/06/20/ER Draft Date of Exam:05/06/20 CHEST 1 VIEW, AP/PA ONLY INDICATION: Shortness of air. Time of exam 10:50 AM No prior studies are available for comparison. The heart size is normal. The pulmonary vascularity is unremarkable. The lungs are clear. No infiltrate, effusion or pneumothorax is detected. Impression: No acute cardiopulmonary process is detected. Dictated on workstation # [id number] Dict: 05/06/20 1103 Trans: 05/06/20 1104 [facility] [id number] Interpreted by: BENJAMÍN MOCTEZUMA MD Electronically signed by: Departure Impression Primary Impression: COPD exacerbation Disposition: 01 HOME, SELF-CARE Condition: Stable Departure-Patient Inst. Decision time for Depature: 11:11 Referrals: NO,LOCAL PHYSICIAN (PCP) Primary Care Physician MILES VALDEZ FIT MODEL (Family) Primary Care Physician Patient Instructions: Exacerbation of COPD Add. Discharge Instructions: If you wish to reduce or prevent further lung damage, you must quit smoking. If you don't, you will get worse. Steroids and antibiotics as directed. Follow-up with primary care to discuss your disability concerns. All discharge instructions reviewed with patient and/or family. Voiced understanding. Scripts Prednisone (Prednisone) 20 Mg Tab 40 MG PO DAILY, #6 TAB 0 Refills Prov: JACOB SANDERS APRN 05/06/20 Cefuroxime Axetil (Cefuroxime) 250 Mg Tablet 250 MG PO BID, #10 TAB Prov: JACOB SANDERS APRN 05/06/20 Work/School Note: Work Release Form Date Seen in the Emergency Department: May 06, 2020 Return to Work: May 08, 2020 JACOB SANDERS APRN May 06, 2020 11:14
[2020-05-06] MEDS ORDERED: CEFU250T80 PO (11:15)
[2020-05-06] MEDS ORDERED: PRD20T PO (11:15)
[2020-05-06 11:19] LABS: ALBUMIN 4.2 GM/DL (3.2-4.5); CHLORIDE 108 MMOL/L (98-107); POTASSIUM 3.9 MMOL/L (3.6-5.0); SODIUM 140 MMOL/L (135-145)
[2020-05-06 11:20] LABS: CALCIUM 9.3 MG/DL (8.5-10.1)
[2020-05-06 11:22] LABS: GLUCOSE 105 MG/DL (70-105); TOTAL PROTEIN 7.2 GM/DL (6.4-8.2)
[2020-05-06 11:23] LABS: CARBON DIOXIDE 19 MMOL/L (21-32)
[2020-05-06 11:24] LABS: BILIRUBIN,TOTAL 0.3 MG/DL (0.1-1.0)
[2020-05-06 11:25] LABS: ALKALINE PHOSPHATASE 111 U/L (40-136); CREATININE SERUM 0.91 MG/DL (0.60-1.30); GFR ESTIMATED > 60
[2020-05-06 11:26] LABS: BUN/CREATININE RATIO 18
[2020-05-06 11:28] LABS: ALANINE AMINOTRANSFERASE 11 U/L (0-55); MAGNESIUM 2.2 MG/DL (1.6-2.4)
--- NOTE | 2020-05-06 11:30 | NUR ---
RESTING IN BED ET DENIES NEEDS. NOTIFIED WE WERE WAITING ON LABS TO COME BACK.
[2020-05-06 11:52] VITALS: BP 131/79
--- OUTSIDE RECORDS SUMMARY | 2020-05-06 12:27 | XMS REPORT | CCD ---
Author Author CARMEN MCCLENDON Organization Unknown Address [address] [facility] [address] [place] [address] Care Team Providers Care Freight Air Brake Fitter Name Role Phone IZABELLA ZALDIVAR DO Attphys Allergies Allergy Code Allergy Type Reaction Status SULFA (sulfonamide) 0 Drug allergy RASH Active Active Medications Unknown or Not Available. Problems Problem Code Start Date Resolved Date Sta tus CVA (CEREBRAL INFARCTION) 84690 05/13/2012 Active CONVERSION REACTION 61527 05/13/2012 Active Procedures Procedure Code Procedure Type Date US EXTREMITY SONO, NONVASCULAR, LIMITED 495937183 SN OMED CT 05/07/2017 Results Unknown or Not Available. Function Status Unknown or Not Available. History of Immunizations Immunization Code Date pneumococcal polysaccharide PPV23 33 06/11/2017 pneumococcal polysaccharide PPV23 33 07/02/2017 Influenza, seasonal, injectable, preservative free 140 06/11/2017 Influenza, seasonal, injectable 141 Plan of Treatment Unknown or Not Available. Social History Smoking Status Code Start Date End Date Current every day smoker 227620732 Vital Signs Unknown or Not Available. Function Status Unknown or Not Available. Goals Unknown or Not Available. ASSESSMENTS Unknown or Not Available. Health Concerns Section Unknown or Not Available.
--- OUTSIDE RECORDS SUMMARY | 2020-05-06 12:27 | XMS REPORT ---
Patient Summary 2.1 Created on: CARMEN WHITE : 1965 Sex: Male Author Author CARMEN SANTAMARIA Organization Unknown Address [address] [facility] [address] [place], [place] [id number] Care Team Providers Care Scarf And Anneal Operator Name Role Phone Watchlist AMBER Adames MD Attending JOSÉ MIGUEL EVANS APRN [facility] AMBER Adames MD Unavailable Functional Status No Data Found Immunization Immunization Date Status Additional Notes Code Code System pneumococcal polysaccharide PPV23 Completed 33 CVX pneumococcal polysaccharide PPV23 Completed 33 CVX Influenza, seasonal, injectable, preservative free 06/11/2017 Completed 140 CVX Influenza, seasonal, injectable 10/27/2011 Completed 141 CVX influenza, injectable, quadrivalent, preservative free 10/28/2018 Completed 150 CVX Mental Status No Data Found Results COMPREHENSIVE METABOLIC PANEL - Collect Date/Time: 05/07/2019 06:22 [facility] ID: [id number] [address] [facility] [address], [place], [phone] [employer] ID: [id number] [address] [facility] [address], [place], [phone] LOINC: 82347-5 Test Value Unit Reference Range Code Code System GLUCOSE 83 MG/DL L=70 H=100 2345-7 LOINC SODIUM 142 MEQ/L L=135 H=148 2951-2 LOINC POTASSIUM 4.2 MEQ/L L=3.5 H=5.3 2823-3 LOINC CHLORIDE 106 MEQ/L L=96 H=110 2075-0 LOINC CO2 27 MEQ/L L=22 H=29 2028-9 LOINC BUN 9 MG/DL L=8 H=22 3094-0 LOINC CREATININE 0.78 MG/DL L=0.72 H=1.25 2160-0 LOINC SGOT/AST 12 IU/L L=10 H=40 1920-8 LOINC SGPT/ALT 12 IU/L L=8 H=54 1742-6 LOINC ALK PHOS 83 IU/L L=40 H=150 6768-6 LOINC TOTAL PROTEIN 5.8 G/DL L=5.5 H=8.5 2885-2 LOINC ALBUMIN 3.6 G/DL L=3.1 H=5.4 1751-7 LOINC TOTAL BILI 0.3 MG/DL L=0.0 H=1.5 1975-2 LOINC CALCIUM 9.2 MG/DL L=8.2 H=10.6 09533-7 LOINC AGE 53 yrs GFR NonAA 105 GFR AA 127 eGFR 105 mL/min/1.7 eGFR AA* >60 CBC W/ AUTO DIFF (RFLX MAN DIFF IF IND) - Collect Date/Time: 05/07/2019 06:22 [employer] ID: [id number] [address], [place], [place], [phone] [facility] [employer] ID: [id number] [address], [place], [place], [phone] LOINC: 71680-3 Test Value Unit Reference Range Code Code System WBC 6.1 TH/CMM L=4.5 H=10.8 62379-7 LOINC RBC 4.47 ML/CMM L=4.70 H=6.10 789-8 LOINC HGB 14.3 G/DL L=14.0 H=18.0 718-7 LOINC HCT 43.0 % L=42.0 H=52.0 4544-3 LOINC MCV 96 FL L=81 H=99 MCH 32.0 PG L=27.0 H=33.0 MCHC 33.3 G/DL L=31.0 H=36.0 RDW SD 50 FL L=36 H=50 RDW CV 13.9 % L=0.0 H=14.8 MPV 9.3 FL L=9.3 H=12.5 PLT 218 TH/CMM L=130 H=440 777-3 LOINC NRBC# 0.00 TH/CMM L=0.00 H=0.00 NRBC% 0.0 /100WBC L=0.0 H=2.0 %NEUT 45.9 % %LYMP 41.0 % %MONO 8.4 % %EOS 3.5 % %BASO 1.0 % #NEUT 2.78 TH/CMM L=2.10 H=8.20 #LYMP 2.48 TH/CMM L=0.90 H=5.20 #MONO 0.51 TH/CMM L=0.16 H=1.00 #EOS 0.21 TH/CMM L=0.00 H=0.80 #BASO 0.06 TH/CMM L=0.00 H=0.20 MANUAL DIFF NOT IND ABDOMEN ACUTE SERIES - Completed: 2018 06:42 LOINC: EXAMINATION:ABDOMEN ACUTE SERIESREASON F OR EXAM:Abdominal Pain COMPARISON:There is a chest x-ray dated April 28, 2019. There is a abdomen x-ray dated May 06, 2019.FINDINGS:Supine and upright views of the abdomen demonstrate no free air under the diaphragms. The small-bowel loops are less prominent. There is colonic gas. No significant air-fluid level is seen. Surgical clips are seen in the gallbladder fossa. Soft tissue contours and bony structures are unremarkable.Accompanying upright chest x-ray demonstrates normal cardiac silhouette, mediastinum and pulmonary vascularity. The lungs are well aerated and clear without evidence of infiltrate, pleural effusion or pneumothorax.IMPRESSION:1.No acute cardiopulmonary disease is seen. 2.There are some air-filled loops of small bowel. These are less prominent than on the previous study. There is some colonic gas. 3.No free air or air-fluid level is seen. Reviewed and Electronically Signed by: Lloyd Petersen MD DABRSigned Date/Time: 05/07/2019 11:21 AMJob ID#: [id number] CT ABD AND PELVIS W/CONTRAST - Completed : 05/08/2019 11:45 LOINC: EXAMINATION:CT ABD AND PELVIS W/CONTRAST REASON FOR EXAM:Reason for Abd Test: Abdominal PainTECHNIQUE:2.5 mm axial images of the abdomen and pelvis were obtained after the administration of 100 mL of Omnipaque 300. Coronal reconstructions were performed. Automated exposure control was performed using [employer] Dose Management, which adjusts mA and/or kV according to patient size.COMPARISON:May 24, 2017 CTFINDINGS:Lung bases: There is some atelectatic or scarring change with flat density in the lung bases.Liver: Normal.Gallbladder: Surgical clips are seen in the gallbladder fossa. No significant ductal dilatation is evident.Spleen: Normal.Pancreas: Normal.Adrenal glands: Normal.Kidneys: No renal or ureteral calcification is seen. No hydronephrosis is evident. No solid renal mass is seen.Bladder: The bladder wall is mildly thickened. This could relate to nondistended status.Bowel: There is a moderate amount of stool in the rectal vault. This measures about 6.2 x 6.6 x 5.2 cm. The remainder of the colon is unremarkable. The small bowel loops are nondilated. No pericolonic fluid collection or inflammatory changes seen.Reproductive: The prostate gland is unremarkable.Periaortic space: No para -aortic adenopathy or mass is seen. Pelvis: No pelvic mass or pathologically enlarged lymph nodes are seen.Peritoneum: No free air or free fluid is seen. There is an abdominal anterior mesh in the left lower quadrant.IMPRESSION:1.There is a moderate amount of stool in the colon. There is focal stool in the rectal vault measuring about 6.2 x 6.6 x 5.2 cm. 2.Previous cholecystectomy. No significant ductal dilatation is seen. 3.Some atelectatic changes suggested in the lung bases. 4.There is an anterior left abdominal wall mesh from previous surgery. 5.The CT abdomen and pelvis with contrast is otherwise unremarkable. Reviewed and Electronically Signed by: Lloyd Petersen MD DABRSigned Date/Time: 05/08/2019 4:06 PMJob ID#: [id number] Social History Type Status Start Date End Date Code Code System Smoking History Current every day smoker 583458926 SNOMED-CT Smoking History Never smoker (Never Smoked ) 369510462 SNOMED-CT Vital Signs Vital Sign Value Unit Lyle Value Lyle Unit Date/Time Recent/Initial? Code Cod e System Body Mass Index 33.90 kg /m2 05/08/2019 16:45 Most Recent 38681-0 [facility] Body Mass Index 20.40 kg /m2 05/06/2019 14:55 Initial 94460-2 LOINC Systolic Blood Pressure 144 mm[Hg] 05/09/2019 07:29 Most Recent 8480-6 LOINC Diastolic Blood Pressure 87 mm[Hg] 05/09/2019 07:29 Most Recent 8462-4 LOINC Systolic Blood Pressure 148 mm[Hg] 05/06/2019 14:55 Initial 8480-6 LOINC Diastolic Blood Pressure 88 mm[Hg] 05/06/2019 14:55 Initial 8462-4 LOINC Body Surface Area 1.74 m2 05/08/2019 16:45 Most Recent 3140-1 LOINC Body Surface Area 1.63 m2 05/06/2019 14:55 Initial 3140-1 LOINC Height 147.3200 cm 58.00 in 05/08/2019 16:45 Most Recent 8302-2 LOINC Height 167.6400 cm 66.00 in 05/06/2019 14:55 Init ial 8302-2 LOINC O2 Saturation 98 % 05/09/2019 07:29 Most Recent 57885-9 LOINC O2 Saturation 100 % 05/06/2019 14:55 Initi al 04092-7 LOINC Pulse 61.0 /min 05/09/2019 07:29 Most Recent 8867-4 LOINC Pulse 77.0 /min 05/06/2019 14:55 Initi al 8867-4 LOINC Respiration 16 /min 05/09/2019 07:29 Most Recent 9279-1 LOINC Respiration 18 /min 05/06/2019 14:55 Initi al 9279-1 LOINC Temperature 36.4 Mary 97.5 F 05/09/2019 07:29 Most Recent 8310-5 LOINC Temperature 37.0 Mary 98.6 F 05/06/2019 14:55 Initi al 8310-5 LOINC Weight 73.60 kg 162.20 lbs 05/08/2019 16:45 Mos t Recent 79261-2 LOINC Weight 57.30 kg 126.40 lbs 05/06/2019 14:55 Ini tial 60855-1 LOINC Medications Medication Start Date En d Date Route Frequency Dose Code Code System METOCLOPRAMIDE [REGLAN] INJ: 10MG/2ML 05/06/2019 Unknown IV PUSH Q6H 5 MG 367885 RxNorm PANTOPRAZOLE [PROTONIX] INJ VIAL: 40 MG 05/06/2019 Unknown SLOW IV PUSH JUSTINO LY 40 MG 314064 RxNorm NICOTINE (NICODERM) PATCH: 21MG/24HR 05/06/2019 Unknown TOPICAL DAILY 21 MG 798574 RxNorm KETOROLAC (TORADOL) VIAL: 30 MG/ML 1 ML 05/06/2019 05/11/2019 IV PUSH Q6H 30 MG 6595256 RxNorm ATENOLOL [TENORMIN] TAB : 50 MG 05/07/2019 Unknown BY MOUTH DAILY 50 MG 205409 RxNorm Assessment You had the following problems: SMALL BOWEL OBSTRUCTION Hospital Discharge Instructions Should you have any questions prior to discharge, please contact a member of your healthcare team. If you have left the hospital and have any questions, please contact your primary care physician. 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
--- OUTSIDE RECORDS SUMMARY | 2020-05-06 12:27 | XMS REPORT ---
Discharge Summary 2.1 Created on: CARMEN WHITE : 1965 Sex: Male Author Author CARMEN MCCLENDON Organization Unknown Address [address] [facility] [address] [place], [place] [phone] Care Team Providers Care Assistant Center Director Name Role Phone Xwatchlist AMBER Adames MD Attending JOSÉ MIGUEL EVANS APRN [facility] Functional Status No Data Found Immunization Immunization [...] METABOLIC PANEL - Collect Date/Time: 05/07/2019 06:22 [employer] ID: [id number] [address] [facility] [address], [place], [phone] [facility] RN [email or web address] [facility] ID: [id number] [address] [facility] [address], [place], [phone] LOINC: 32162-0 Test Value Unit Reference Range Code Code [...] 1975-2 LOINC CALCIUM 9.2 MG/DL L=8.2 H=10.6 32570-0 LOINC AGE 53 yrs GFR NonAA 105 GFR AA 127 eGFR 105 mL/min/1.7 eGFR AA* >60 CBC W/ AUTO DIFF (RFLX MAN DIFF IF IND) - Collect Date/Time: 05/07/2019 06:[address] [facility] ID: [id number] [address] [facility] [address], [place], [place], [id number] [facility] ID: [id number] [address] [facility] [address], [place], [place], [phone] INC: 28397-9 Test Value Unit Reference Range Code Code System WBC 6.1 TH/CMM L=4.5 H=10.8 02080-9 LOINC RBC 4.47 ML/CMM L=4.70 H=6.10 789-8 [...] MD DABRSigned Date/Time: 05/07/2019 11:21 AMJob ID#: [id number] CT ABD AND PELVIS W/CONTRAST - Completed : 05/08/2019 11:45 LOINC: EXAMINATION:CT ABD AND PELVIS W/CONTRAST REASON FOR EXAM:Reason for Abd Test: Abdominal PainTECHNIQUE:2.5 mm axial images of the abdomen and pelvis were obtained after the administration of 100 mL of Omnipaque 300. Coronal reconstructions were performed. Automated exposure control was performed using [employer] Dose Management, which adjusts mA and/or kV [...] MD DABRSigned Date/Time: 05/08/2019 4:06 PMJob ID#: [id number] Social History Type Status Start Date End Date Code Code System Smoking History Current every day smoker 707022533 SNOMED-CT Smoking History Never smoker (Never Smoked ) 796286103 SNOMED-CT Vital Signs Vital Sign Value Unit Tom Bean Value Tom Bean Unit Date/Time Recent/Initial? Code Cod e System Body Mass Index 33.90 kg /m2 05/08/2019 16:45 Most Recent 95413-6 LOINC Body Mass Index 20.40 kg /m2 05/06/2019 14:55 Initial 32282-5 LOINC Systolic Blood Pressure 145 mm[Hg] 05/09/2019 11:09 Most Recent 8480-6 LOINC Diastolic Blood Pressure 85 mm[Hg] 05/09/2019 11:09 Most Recent 8462-4 LOINC Systolic Blood Pressure [...] 14:55 Init ial 8302-2 LOINC O2 Saturation 100 % 05/09/2019 11:09 Most Recent 97914-9 LOINC O2 Saturation 100 % 05/06/2019 14:55 Initi al 29069-0 LOINC Pulse 61.0 /min 05/09/2019 11:09 Most Recent 8867-4 LOINC Pulse 77.0 /min 05/06/2019 14:55 Initi al 8867-4 LOINC Respiration 16 /min 05/09/2019 11:09 Most Recent 9279-1 LOINC Respiration 18 /min 05/06/2019 14:55 Initi al 9279-1 LOINC Temperature 36.7 Mary 98.1 F 05/09/2019 11:09 Most Recent 8310-5 LOINC Temperature 37.0 Mary 98.6 F 05/06/2019 14:55 Initi al 8310-5 LOINC Weight 73.60 kg 162.20 lbs 05/08/2019 16:45 Mos t Recent 39928-6 LOINC Weight 57.30 kg 126.40 lbs 05/06/2019 14:55 Ini tial 01199-3 LOINC Assessment You had the following problems: SMALL BOWEL OBSTRUCTION Hospital Discharge Instructions Should you have any questions prior to discharge, please contact a member of your healthcare team. If you have left the hospital and have any questions, please contact your primary care physician. PRIMARY CARE PROVIDER: DR. CRISTINA VALDEZ [phone] HOME MEDICATION INSTRUCTIONS: Take only the medications listed below HOME MEDS RETURNED TO PATIENT: N/A. HOME DIET: as tolerated. ACTIVITY INSTRUCTIONS(list limitations): Activity as Tolerated. SCRIPTS WRITTEN BY DOCTOR GIVEN TO PATIENT? reglan 5 mg before meals and at bedtime. SMOKING CESSATION: Smoking and second hand smoke is harmful, to your health.. Smoking has been linked to cancer, cardiac disease, COPD, and asthma.. For more information you can call:, 1-657-RYA-STOP, or 7-139-XHZE-[facility].. A pamphlet on smoking was given to you, at admission.. FOLLOW UP APPOINTMENT: Appt not made due to Dr office closed. Follow up with Dr. Valdez in 1 we ek. CONTACT PHYSICIAN IF YOU EXPERIENCE ANY: Increased abdominal pain or fever. PERSONAL ITEMS RETURNED: Yes. INSTRUCTIONS GIVEN AND DISCHARGE TO: Patient. INSTRUCTIONS GIVEN BY (TYPE IN NAME AND DATE) Celeste MARCOS RN 05/09/19 Reason For Referral Hospital Course You were admitted to [facility] on 05/06/2019 16:03 with a principal diagnosis of Ileus, unspecified You were discharged from [facility] on 05/09/2019 12:45 Medications Medication Start Date En d Date Route Frequency Dose Code Code System Reglan 5MG Oral Tablet 05/09/2019 Unknown BY MOUTH BEFORE MEALS AND BED 1 TABLET 529676 RxNorm Atenolol 50MG Oral Tablet 05/09/2019 Unknown ORAL DAILY 50 MILLIGRAMS 294426 RxNorm Topamax 25MG Oral Tablet 05/09/2019 Unknown ORAL TWO TIMES A DAY 25 MILLIGRAMS 136408 RxNorm Procedures No Data Found Implants No Data Found Problems Problem Start Date Resol el Date Status Code Code System SMALL BOWEL OBSTRUCTION active 772033142 SNOMED- CT ABDOMINAL PAIN 012 resolved SNOMED-CT ACUTE CROHN'S DISEASE 05/14/2012 resolved SNOMED-CT ABDOMINAL PAIN 012 resolved SNOMED-CT CVA (CEREBRAL INFARCTION) 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
--- OUTSIDE RECORDS SUMMARY | 2020-05-06 12:27 | XMS REPORT ---
Author Author Karl Schmidt [facility] Address [address] [place] [id number] Care Team Providers Care Car Rental Clerk Name Role Phone Alexi Schmidt PCP Allergies and Adverse Reactions Name Reaction Notes SULFA (SULFONAMIDES) Plan of Treatment Not available. Medications Active Name Start Date Estimated Completion Date SIG Co mments atenolol 25 mg oral tablet take 1 tablet (25 mg) by oral route once daily ProAir HFA 90 mcg/actuation inhalation HFA aerosol inhaler 019 inhale 1 - 2 puffs (90 - 180 mcg) by inhalation route every 6 hours as needed Stiolto Respimat 2.5-2.5 mcg/actuation inhalation mist 11/17/2019 inhale 2 puffs by inhalation route once daily at the same time each day Name Start Date Expiration Date SIG Comments naproxen 500 mg oral tablet take 1 tablet (500 mg) by oral route 2 times per day as needed Neurontin 100 mg oral capsule 05/21/2017 05/28/2017 take one ta b PO TID diclofenac sodium 50 mg oral tablet,delayed release (DR/EC) 06/11 take 1 tablet (50 mg) by oral route 3 times per day cyclobenzaprine 10 mg oral tablet 06/11/2017 take 1 tablet (10 mg) by oral route 2 times per day Skelaxin 800 mg oral tablet 12/02/2017 take 1 tablet (800 mg) by oral route 3 times per day as needed Topamax 25 mg oral tablet 10/27/2018 11/26/2018 take 1 tablet by oral route 2 times a day for 30 days Reglan 5 mg oral tablet take 1 t ablet (5 mg) by oral route 4 times per day 30 minutes before meals and at bedtime Miralax 17 gram/dose oral powder 05/15/2019 Take as directed Zyban 150 mg oral tablet extended release 12 hr 07/06/2019 10/04/2019 take 1 tablet (150 mg) by oral route 2 times per day for 30 days metronidazole 500 mg oral tablet 08/31/2019 take 4 tablets (2 gram) by oral route once daily Lexapro 10 mg oral tablet 09/21/2019 10/21/2019 take 1 tablet (10 mg) by oral route once daily for 30 days Augmentin 875-125 mg oral tablet 11/17/2019 11/24/2019 take 1 tablet by oral route every 12 hours for 7 days Discontinued Name Start Date Discontinued Date SIG Comments baclofen 10 mg oral tablet 05/28/2017 06/11/2017 take 1 tablet (10 mg) by oral route 3 times per day tramadol 50 mg oral tablet 05/28/2017 06/11/2017 take 1 tablet (50 mg) by oral route every 6 hours as needed baclofen 10 mg oral tablet 2017 10/23/2018 take 1 tablet by oral route 3 times a day as needed for 7 days patient reports giving him headaches Flomax 0.4 mg oral capsule 02/24/2019 05/15/2019 take 1 capsule (0.4 mg) by oral route once daily 1/2 hour following the same meal each day for 30 days Problem List Description Status Onset Glucosuria Active 05/21/2017 Groin pain, right Active 05/21/2017 Current smoker Active 05/21/2017 Vital Signs Date Time BP-Sys(mm[Hg] BP-Maria [place](mm[Hg]) HR(bpm) RR(rpm) Temp WT HT HC BMI BSA BMI Percentile O2 Sat(%) 11/17/2019 1:24:00 PM 138 mm[Hg] 88 mm[Hg] 82 {beats}/min 18 rpm 97.9 F 141 lbs 66 in 22.7578 kg/m2 1.7258 m2 100 % 09/21/2019 9:03:00 AM 150 mm[Hg] 90 mm[Hg] 74 {beats}/min 16 rpm 97.8 F 142 lbs 66 in 22.92 kg/m2 1.73 m2 97 % 09/03/2019 1:46:00 PM 140 mm[Hg] 80 mm[Hg] 96 {beats}/min 18 rpm 98.6 F 135 lbs 66 in 21.79 kg/m2 1.69 m2 98 % 06/25/2019 1:55:00 PM 130 mm[Hg] 80 mm[Hg] 99 {beats}/min 18 rpm 97.7 F 135 lbs 66 in 21.7893 kg/m2 1.6886 m2 99 % 06/15/2019 2:53:00 PM 130 mm[Hg] 80 mm[Hg] 94 {beats}/min 18 rpm 97.4 F 137 lbs 66 in 22.11 kg/m2 1.70 m2 99 % 05/20/2019 10:00:00 AM 110 mm[Hg] 80 mm[Hg] 82 {beats}/min 18 rpm 98.8 F 133 lbs 66 in 21.4665 kg/m2 1.6761 m2 99 % 05/15/2019 9:21:00 AM 136 mm[Hg] 80 mm[Hg] 68 {beats}/min 16 rpm 98.2 F 134.375 lbs 66 in 21.69 kg/m2 1.68 m2 99 % 05/06/2019 10:25:00 AM 120 mm[Hg] 80 mm[Hg] 84 {beats}/min 16 rpm 98.6 F 127 lbs 66 in 20.4981 kg/m2 1.6378 m2 98 % 02/23/2019 1:26:00 PM 112 mm[Hg] 78 mm[Hg] 68 {beats}/min 16 rpm 97.8 F 134 lbs 66 in 21.63 kg/m2 1.68 m2 99 % 01/05/2019 3:17:00 PM 110 mm[Hg] 80 mm[Hg] 86 {beats}/min 16 rpm 97.9 F 134 lbs 66 in 21.6279 kg/m2 1.6824 m2 99 % 10/23/2018 1:14:00 PM 130 mm[Hg] 76 mm[Hg] 68 {beats}/min 18 rpm 98.8 F 147.8 lbs 66 in 23.86 kg/m2 1.77 m2 99 % 12/16/2017 4:21:00 PM 150 mm[Hg] 90 mm[Hg] 102 {beats}/min 99.7 F 150.25 lbs 66 in 24.2507 kg/m2 1.7815 m2 98 % 2017 2:34:00 PM 140 mm[Hg] 90 mm[Hg] 91 {beats}/min 98.1 F 155. 5 lbs 98 % 12/02/2017 1:41:00 PM 134 mm[Hg] 88 mm[Hg] 115 {beats}/min 18 rpm 97.5 F 147.125 lbs 66 in 23.75 kg/m2 1.76 m2 99 % 11/19/2017 8:37:00 AM 128 mm[Hg] 88 mm[Hg] 90 {beats}/min 18 rpm 96.1 F 147.375 lbs 66 in 23.7867 kg/m2 1.7643 m2 99 % 06/11/2017 2:14:00 PM 120 mm[Hg] 70 mm[Hg] 82 {beats}/min 16 rpm 14 2 lbs 66 in 22.92 kg/m2 1.73 m2 99 % 05/28/2017 8:25:00 AM 118 mm[Hg] 78 mm[Hg] 93 {beats}/min 20 rpm 96.3 F 137.25 lbs 66 in 22.1525 kg/m2 1.7027 m2 90 % 05/21/2017 10:31:00 AM 118 mm[Hg] 80 mm[Hg] 83 {beats}/min 18 rpm 98 F 130 lbs 66 in 20.98 kg/m2 1.66 m2 99 % 05/13/2017 1:31:00 PM 122 mm[Hg] 78 mm[Hg] 74 {beats}/min 16 rpm 97 F 141.5 lbs 66 in 22.8385 kg/m2 1.7288 m2 99 % Social History Name Description Comments Tobacco Current every day smoker Alcohol Use - Occasional [employer] Worker History of Procedures Date Ordered Description Order Status 05/21/2017 12:00 AM X-RAY EXAM OF PELVIS Reviewed 05/21/2017 12:00 AM GLYCOSYLATED HEMOGLOBIN TEST Reviewed 05/21/2017 12:00 AM ASSAY OF PSA TOTAL Reviewed 05/21/2017 2:06 PM URINALYSIS AUTO W/O SCOPE Reviewed 06/11/2017 12:00 AM AUTOMATED DIFF WBC COUNT Reviewed 06/11/2017 12:00 AM COMPREHEN METABOLIC PANEL Reviewed 06/11/2017 12:00 AM ASSAY OF MAGNESIUM Reviewed 12/16/2017 12:00 AM NRV CNDJ TEST 7-8 STUDIES Reviewed 12/16/2017 12:00 AM MUSC TEST DONE W/N TEST COMP Reviewed 12/16/2017 12:00 AM Orthopedic Consult Reviewed 10/23/2018 12:00 AM COMPLETE CBC W/AUTO DIFF WBC Reviewed 10/23/2018 12:00 AM COMPREHEN METABOLIC PANEL Reviewed 10/23/2018 12:00 AM LIPID PANEL Reviewed 10/23/2018 12:00 AM ASSAY THYROID STIM HORMONE Reviewed 10/23/2018 12:00 AM ASSAY OF PSA COMPLEXED Reviewed 02/23/2019 12:00 AM ASSAY OF PSA TOTAL Reviewed 05/06/2019 12:00 AM COMPLETE CBC W/AUTO DIFF WBC Reviewed 05/06/2019 12:00 AM COMPREHEN METABOLIC PANEL Reviewed 05/06/2019 12:00 AM ASSAY OF AMYLASE Reviewed 05/06/2019 12:00 AM ASSAY OF LIPASE Reviewed 05/06/2019 12:00 AM URNLS DIP STICK/TABLET RGNT AUTO W/O NOE ROSCOPY Reviewed 05/06/2019 12:00 AM RADEX ABDOMEN COMPL W/DCBTS&/ERC VIEWS R eviewed 05/20/2019 12:00 AM RADEX ABDOMEN COMPL W/DCBTS&/ERC VIEWS R eviewed 06/15/2019 12:00 AM BREATHING CAPACITY TEST Reviewed 11/17/2019 12:00 AM MRI BRAIN STEM W/O DYE Returned Results Summary Date and Description Results 05/21/2017 12:10 PM PSA TOTAL 2.280 ng/mLHGB A1C 5.60 %Est Avg Glucose 114.0 mg/dL 05/21/2017 2:06 PM Clarity Ur CLEAR Color Ur -- -- Glucose Ur-sCnc 2+ Bilirub Ur Ql Strip -VE Ketones Ur Ql Strip -VE Sp Gr Ur Qn 1015 Hgb Ur Ql Strip -VE pH Ur- LsCnc 6,0 Prot Ur Ql Strip -VE Urobilinogen Ur-mCnc -VE Nitrite Ur Ql Strip -VE WBC Est Ur Ql Strip -VE 06/11/2017 2:42 PM WBC 9.1 RBC 4.56 HGB 14.70 g /dLHCT 41.30 %MCV 91.0 fLMCH 32.20 pgMCHC 35.60 g/dLRDW SD 48 RDW CV 14.30 %MPV 8.90 fLPLT 267 NRBC# 0.00 NRBC% 0.0 %NEUT 56.70 %%LYMP 31.70 %%MONO 7.70 %%EOS 2.90 %%BASO 0.90 %#NEUT 5.17 #LYMP 2.89 #MONO 0.70 #EOS 0.26 #BASO 0.08 MANUAL DIFF NOT IND GLUCOSE 102.0 mg/dLSODIUM 141.0 mmol/LPOTASSIUM 4.0 mmol/LCHLORIDE 108.0 mmol/LCO2 27.0 mmol/LBUN 11.0 mg/dLCREATININE 0.80 mg/dLSGOT/AST 14.0 IU/LSGPT/ALT 13.0 IU/LALK PHOS 86.0 IU/LTOTAL PROTEIN 6.60 g/dLALBUMIN 3.90 g/dLTOTAL BILI 0.30 mg/dLCALCIUM 9.40 mg/dLAGE 51 GFR NonAA 102 GFR AA 124 eGFR >60 mL/min/1.73 m2eGFR AA* >60 MAGNESIUM 2.0 mg/dL 10/24/2018 8:10 AM WBC 8.9 RBC 4.77 HGB 15.40 g /dLHCT 45.30 %MCV 95.0 fLMCH 32.30 pgMCHC 34.0 g/dLRDW SD 50 fLRDW CV 14.20 %MPV 9.20 fLPLT 266 NRBC# 0.00 NRBC% 0.0 %NEUT 64.0 %LYMP 24.4 %MONO 7.4 %EOS 2.6 %BASO 1.1 #NEUT 5.68 #LYMP 2.16 #MONO 0.66 #EOS 0.23 #BASO 0.10 MANUAL DIFF NOT IND TSH 2.02 PSA TOTAL 1.41 TRIGLYCERIDES 69 CHOLESTEROL 193.0 mg/dLHDL 46 TOT CHOL/HDL 4.2 LDL (CALC) 133 GLUCOSE 104 SODIUM 140 POTASSIUM 4.4 CHLORIDE 107.0 mmol/LCO2 26 BUN 14.0 mg/dLCREATININE 0.80 mg/dLSGOT/AST 15 SGPT/ALT 15 ALK PHOS 97 TOTAL PROTEIN 6.8 ALBUMIN 4.1 TOTAL BILI 0.3 CALCIUM 8.90 mg/dLAGE 52 GFR NonAA 102 GFR AA 124 eGFR 102 eGFR AA* >60 mL/min/1.73 m2 02/23/2019 1:56 PM PSA TOTAL 1.03 05/06/2019 10:50 AM WBC 9.6 RBC 4.70 HGB 15.20 g /dLHCT 44.90 %MCV 96.0 fLMCH 32.30 pgMCHC 33.90 g/dLRDW SD 50 fLRDW CV 14.20 %MPV 9.20 fLPLT 250 NRBC# 0.00 NRBC% 0.0 %NEUT 61.2 %LYMP 30.4 %MONO 5.5 %EOS 2.0 %BASO 0.6 #NEUT 5.84 #LYMP 2.90 #MONO 0.53 #EOS 0.19 #BASO 0.06 MANUAL DIFF NOT IND COLOR Light-Yellow CLARITY Clear SPEC GRAV 1.015 pH 6.0 PROTEIN Negative GLUCOSE Normal KETONE Negative BILIRUBIN Negative BLOOD Negative NITRITE Negative LEUK SCREEN Negative Micro Indicated? NOT IND CULT SET UP? NO GLUCOSE 81 SODIUM 142 POTASSIUM 4.0 CHLORIDE 110.0 mmol/LCO2 26 BUN 12.0 mg/dLCREATININE 0.80 mg/dLSGOT/AST 9 SGPT/ALT 13 ALK PHOS 91 TOTAL PROTEIN 6.2 ALBUMIN 3.8 TOTAL BILI 0.2 CALCIUM 9.0 mg/dLAGE 53 GFR NonAA 102 GFR AA 124 eGFR 102 eGFR AA* >60 mL/min/1.73 [id number] 53 IU/LLIPASE 15 History Of Immunizations Name Date Admin Mfg Name Mfg Code Trade Name Lot# Route Inj Vis Given Vis Pub CVX Influenza 06/11/2017 [employer] SKB Fluarix, morgan drivalent, preservative free [id number] Intramuscular Left Arm 10/21/2019 10/21/2019 141 Pneumococcal 07/02/2017 [employer] MSD PNEUMOVAX 23 [id number] In tramuscular Right Arm 10/21/2019 10/21/2019 33 Influenza 10/28/2018 Not Entered NE Fluzone Quadrivalent [id number] Intr amuscular Left Arm 10/29/2018 10/21/2019 150 History of Past Illness Name Date of [...] Constipation, unspecified constipation type Jun 11 2017 2:1 5PM Acute nonintractable headache, unspecified headache type Jun 11 2017 2:15PM Acute midline low back pain without sciatica Nov 19 2017 8: 40AM Cervicalgia 2017 2:39PM Mechanical low back pain 2017 2:39PM Spasm of muscle 2017 2:39PM Neck pain Dec 02 2017 1:44PM Lumbar back pain Dec 02 2017 1:44PM Ulnar neuropathy at elbow of left upper extremity b 201 8 4:25PM Intractable migraine with status migrainosus, unspecif ied migraine type Oct 23 2018 1:16PM Screening for ischemic heart disease Oct 23 2018 1:16PM Screening for prostate cancer Oct 23 2018 1:16PM Fatigue Oct 23 2018 1:16PM Influenza A Jan 05 2019 3:19PM Urinary urgency Feb 23 2019 1:27PM Screening for prostate cancer Feb 23 2019 1:27PM Generalized abdominal pain May 06 2019 10:27AM Constipation May 06 2019 10:27AM Small bowel obstruction May 06 2019 10:27AM Constipation, unspecified constipation type May 20 2019 10:0 4AM Constipation, unspecified constipation type May 15 2019 9:2 5AM Abdominal distention May 15 2019 9:25AM Abdominal distention May 20 2019 10:04AM Shortness of breath Jun 15 2019 2:56PM Smoker Jun 15 2019 2:56PM Chest congestion Jun 15 2019 2:56PM Pulmonary emphysema, unspecified emphysema type Jun 25 2019 1:57PM Current smoker Sep 03 2019 1:49PM Pulmonary emphysema, unspecified emphysema type Sep 03 2019 1:49PM Fatigue, unspecified type Sep 03 2019 1:49PM Colon abnormality Sep 03 2019 1:49PM Pulmonary emphysema, unspecified emphysema type Sep 21 2019 9:04AM Anxiety Sep 21 2019 9:04AM Current smoker Nov 17 2019 1:26PM Confusion Nov 17 2019 1:26PM History of TIA (transient ischemic attack) Nov 17 2019 1:26 PM Acute non-recurrent frontal sinusitis Nov 17 2019 1:26PM Dizziness Nov 17 2019 1:26PM Dizziness Dec 02 2019 1:30PM Confusion Dec 02 2019 1:30PM Abnormal MRI of head Dec 02 2019 1:30PM Payers Insurance Name Company Name Plan Name Plan Number Policy Number [place] Group Number Start Date [employer] [id number] N/ A History of Encounters Visit Date Visit Type Provider 11/17/2019 Office visit Alexi Schmidt APR N 09/21/2019 Office visit Alexi Schmidt APR N 09/03/2019 Office visit Alexi Schmidt APR N 08/25/2019 [facility] Dk Ye MD 06/25/2019 Office visit Alexi Schmidt APR N 06/15/2019 Office visit Alexi Blairran APR N 06/12/2019 Hospital Dk Ye MD 05/20/2019 Office visit Alexi Schmidt APR N 05/15/2019 Office visit Alexi Schmidt APR N 05/06/2019 [facility] Leonel Waters MD 05/06/2019 Office visit Alexi Schmidt APR N 04/28/2019 Hospital Dk Ye MD 02/23/2019 Office visit Alexi Schmidt APR N 01/05/2019 Office visit Alexi Schmidt APR N 12/31/2018 Hospital Dk Ye MD 10/23/2018 Office visit 10/23/2018 Office visit Felicia Danielle SECURITY CONSULTANT 12/16/2017 Procedures Solo Freire DO 2017 Office visit Solo Freire DO 12/02/2017 Office visit Alexi Schmidt APR N 11/19/2017 Office visit Alexi Schmidt APR N 06/11/2017 Office visit Alexi Schmidt APR N 05/28/2017 Office visit Alexi Schmidt APR N 05/21/2017 Office visit Raymond Lebron MD 05/13/2017 Office visit Alexi Schmidt APR N 12/15/2015 Hospital Dk Ye MD 02/04/2015 Hospital Dk Ye MD 05/11/2012 [facility] Dk Ye MD 10/26/2011 [facility] Leonel Waters MD
--- OUTSIDE RECORDS SUMMARY | 2020-05-06 12:27 | XMS REPORT | CCD ---
Author Author CARMEN MCCLENDON Organization Unknown Address [address] [place] [address] Care Team Providers Care Office Copy Selector Name Role Phone SERGIO WATERS, ASIA Talavera Attphys Allergies Allergy Code Allergy Type Reaction Status SULFA (sulfonamide) 0 Drug allergy RASH Active Active Medications Unknown or Not Available. Problems Problem Code Start Date Resolved Date CVA (CEREBRAL INFARCTION) 12222 05/13/2012 Active CONVERSION REACTION 75980 05/13/2012 Active Procedures Procedure Code Procedure Type Date CT ABD AND PELVIS W/CONTRAST 293192526 SNOMED CT 05/24/2017 UA ROUTINE C&S IF IND 012510422 SNOMED CT 01/2017 D DIMER QUANT 186330124 SNOMED CT 05/24/2017 COMPREHENSIVE METABOLIC PANEL 664301199 SNOMED CT 05/24/2017 CBC W/ AUTO DIFF (RFLX MAN DIFF IF IND) 8839795 SN OMED CT 05/24/2017 ^UA AUTO DIPSTICK ONLY 048061766 SNOMED CT 01/2017 ^CBC W/AUTO DIFF 2322507 SNOMED CT 7 LOCM 300-349 MG/ML, PER ML 915339691 SNOMED CT 05/24/2017 Results COMPREHENSIVE METABOLIC PANEL - Collect Date/Time: 05/24/2017 18:50 Test Name Code Test Result Test Units Kate t Ref Range GLUCOSE 2345-7 96 MG/DL L=70 H=1 00 SODIUM 2951-2 140 MEQ/L L=135 H=14 8 POTASSIUM 2823-3 4.4 MEQ/L L=3.5 H =5.3 CHLORIDE 2075-0 104 MEQ/L L=96 H= 110 CO2 2028-9 24 MEQ/L L=22 H=29 BUN 3094-0 14 MG/DL L=8 H=22 CREATININE 2160-0 0.8 MG/DL L=0.6 H=1.6 SGOT/AST 1920-8 16 IU/L L=10 H= 40 SGPT/ALT 1742-6 17 IU/L L=8 H= 54 ALK PHOS 6768-6 119 IU/L L=35 H= 115 TOTAL PROTEIN 2885-2 7.8 G/DL L=5.5 H=8.5 ALBUMIN 1751-7 4.4 G/DL L=3.1 H=5 .4 TOTAL BILI 1975-2 0.2 MG/DL L=0.0 H=1.5 CALCIUM 57941-3 9.7 MG/DL L=8.2 H= 10.6 AGE 51 yrs GFR NonAA 102 GFR AA 124 eGFR >60 N/A eGFR AA* >60 N/A CBC W/ AUTO DIFF (RFLX MAN DIFF IF IND) - Collect Date/Time: 05/24/2017 18:50 Test Name Code Test Result Test Units Kate t Ref Range WBC 06034-6 9.2 TH/CMM L=4.5 H=1 0.8 RBC 789-8 5.47 ML/CMM L=4.70 H=6. 10 HGB 718-7 17.2 G/DL L=14.0 H=18 .0 HCT 4544-3 49.7 % L=42.0 H=52 .0 MCV 91 FL L=81 H=99 MCH 31.4 PG L=27.0 H=33 .0 MCHC 34.6 G/DL L=31.0 H=36 .0 RDW SD 47 FL L=36 H=50 RDW CV 13.8 % L=0.0 H=14 .8 MPV 9.0 FL L=9.3 H=12 .5 PLT 777-3 285 TH/CMM L=130 H=44 0 NRBC# 0.00 TH/CMM L=0.00 H=0. 00 NRBC% 0.0 /100WBC L=0.0 H=2 .0 %NEUT 59.7 % %LYMP 30.2 % %MONO 6.3 % %EOS 2.6 % %BASO 0.9 % #NEUT 5.48 TH/CMM L=2.10 H=8. 20 #LYMP 2.77 TH/CMM L=0.90 H=5. 20 #MONO 0.58 TH/CMM L=0.16 H=1. 00 #EOS 0.24 TH/CMM L=0.00 H=0. 80 #BASO 0.08 TH/CMM L=0.00 H=0. 20 MANUAL DIFF NOT IND N/A D DIMER QUANT - Collect Date/Time: 05/24 18:50 Test Name Code Test Result Test Units Kate t Ref Range D-DIMER QUANT 18190-5 0.33 MG/L FEU L=0.0 0 H=0.50 PT/PTT - Collect Date/Time: 05/24/2017 1 8:50 Test Name Code Test Result Test Units Kate t Ref Range PROTIME 5964-2 10.0 SEC L=9.9 H=1 1.9 INR 60997-7 0.9 PTT 3173-2 27.1 SEC L=22.2 H=37 .2 UA ROUTINE C&S IF IND - Collect Date/Otis e: 05/24/2017 20:20 Test Name Code Test Result Test Units Kate t Ref Range COLOR YELLOW N/A NL: YELLOW APPEARANCE CLEAR N/A NL: CLEAR SPEC GRAV <=1.005 N/A NL: 1.002 - 1.022 pH 5.5 N/A NL: 5 - 9 PROTEIN NEGATIVE N/A NL: NEGATIVE mg/dl GLUCOSE NEGATIVE N/A NL: NEGATIVE mg/dl KETONE NEGATIVE N/A NL: NEGATIVE mg/dl BILIRUBIN NEGATIVE N/A NL: NEGATI VE BLOOD NEGATIVE N/A NL: NEGATIVE NITRITE NEGATIVE N/A NL: NEGATIVE LEUK SCREEN NEGATIVE N/A NL: NEGA TIVE MICRO INDICATED? NOT INDICATED N/A Function Status Unknown or Not Available. History of Immunizations Immunization Code Date pneumococcal polysaccharide PPV23 33 06/11/2017 pneumococcal polysaccharide PPV23 33 07/02/2017 Influenza, seasonal, injectable, preservative free 140 06/11/2017 Influenza, seasonal, injectable 141 Plan of Treatment Unknown or Not Available. Social History Smoking Status Code Start Date End Date Current every day smoker [id number] Vital Signs Unknown or Not Available. Function Status Unknown or Not Available. Goals Unknown or Not Available. ASSESSMENTS Unknown or Not Available. Health Concerns Section Unknown or Not Available.
--- OUTSIDE RECORDS SUMMARY | 2020-05-06 12:28 | XMS REPORT ---
Author Author Karl Schmidt Organization [facility] Address [address] [place] [id number] Care Team Providers Care Well Logging Mud Analysis Captain Name Role Phone Alexi Schmidt PCP Allergies and Adverse Reactions Name Reaction Notes SULFA (SULFONAMIDES) Plan of Treatment Not available. Medications Active Name Start Date Estimated Completion Date SIG Co mments atenolol 25 mg oral tablet take 1 tablet (25 mg) by oral route once daily topiramate 25 mg oral tablet 03/17/2019 TAKE 1 TABLE T BY MOUTH TWICE DAILY Reglan 5 mg oral tablet take 1 t ablet (5 mg) by oral route 4 times per day 30 minutes before meals and at bedtime Miralax 17 gram/dose oral powder 05/15/2019 Take as directed Name Start Date Expiration Date SIG Comments [...] 2 times a day for 30 days Discontinued Name Start Date Discontinued Date [...] HC BMI BSA BMI Percentile O2 Sat(%) 05/20/2019 10:00:00 AM 110 mmHg 80 mmHg 82 bpm 18 rpm 98.8 F 133 lbs 66 in 21.4665 kg/m 1.6761 m 99 % 05/15/2019 9:21:00 AM 136 mmHg 80 mmHg 68 bpm 16 rpm 98.2 F 134.375 lbs 66 in 21.69 kg/m2 1.68 m2 99 % 05/06/2019 10:25:00 AM 120 mmHg 80 mmHg 84 bpm 16 rpm 98.6 F 127 lbs 66 in 20.4981 kg/m 1.6378 m 98 % 02/23/2019 1:26:00 PM 112 mmHg 78 mmHg 68 bpm 16 rpm 97.8 F 134 lbs 66 in 21.63 kg/m2 1.68 m2 99 % 01/05/2019 3:17:00 PM 110 mmHg 80 mmHg 86 bpm 16 rpm 97.9 F 134 lbs 66 in 21.6279 kg/m 1.6824 m 99 % 10/23/2018 1:14:00 PM 130 mmHg 76 mmHg 68 bpm 18 rpm 98.8 F 147.8 lbs 66 in 23.86 kg/m2 1.77 m2 99 % 12/16/2017 4:21:00 PM 150 mmHg 90 mmHg 102 bpm 99.7 F 150.25 lbs 66 i n 24.2507 kg/m 1.7815 m 98 % 2017 2:34:00 PM 140 mmHg 90 mmHg 91 bpm 98.1 F 155.5 lbs 98 % 12/02/2017 1:41:00 PM 134 mmHg 88 mmHg 115 bpm 18 rpm 97.5 F 147.125 lbs 66 in 23.75 kg/m2 1.76 m2 99 % 11/19/2017 8:37:00 AM 128 mmHg 88 mmHg 90 bpm 18 rpm 96.1 F 147.375 lbs 66 in 23.7867 kg/m 1.7643 m 99 % 06/11/2017 2:14:00 PM 120 mmHg 70 mmHg [...] every day smoker 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 History of Procedures Date Ordered Description [...] 02/23/2019 12:00 AM ASSAY OF PSA TOTAL Returned 05/06/2019 12:00 AM COMPLETE CBC W/AUTO DIFF WBC Returned 05/06/2019 12:00 AM COMPREHEN METABOLIC PANEL Returned 05/06/2019 12:00 AM ASSAY OF AMYLASE Returned 05/06/2019 12:00 AM ASSAY OF LIPASE Returned 05/06/2019 12:00 AM URNLS DIP STICK/TABLET RGNT AUTO W/O NOE ROSCOPY Returned 05/06/2019 12:00 AM RADEX ABDOMEN COMPL W/DCBTS&/ERC VIEWS R eturned 05/20/2019 12:00 AM RADEX ABDOMEN COMPL W/DCBTS&/ERC VIEWS R eturned Results Summary Date and Description Results 05/21/2017 [...] eGFR 102 eGFR AA* >60 mL/min/1.73 m2 History Of Immunizations Name Date Admin Mfg Name Mfg Code Trade Name Lot# Route Inj Vis Given Vis Pub CVX Influenza 06/11/2017 [employer] SKB Fluarix, morgan drivalent, preservative free [id number] Intramuscular Left Arm 10/21/2018 10/21/2018 141 Pneumococcal 07/02/2017 [employer] MSD PNEUMOVAX 23 [id number] In tramuscular Right Arm 10/21/2018 10/21/2018 33 Influenza 10/28/2018 Not Entered NE Fluzone Quadrivalent [id number] Intr amuscular Left Arm 10/29/2018 10/21/2018 150 History of Past Illness Name Date [...] neuropathy at elbow of left upper extremity Dec 16 201 8 4:25PM Intractable migraine with status [...] 9:25AM Abdominal distention May 20 2019 10:04AM Payers Insurance Name Company Name Plan Name Plan Number Policy Number [place] Group Number Start Date BCBS [facility] [id number] N/ A History of Encounters Visit Date Visit Type Provider 05/20/2019 Office visit Alexi Schmidt APR N 05/15/2019 Office visit Alexi Schmidt APR N 05/06/2019 [facility] Leonel Waters MD 05/06/2019 Office visit Alexi Schmidt APR N 02/23/2019 Office visit Alexi Schmidt APR N 01/05/2019 Office visit Alexi Schmidt APR N 12/31/2018 Hospital Dk Ye MD 10/23/2018 Office visit 10/23/2018 Office visit Felicia Danielle SCHOLASTIC APTITUDE TEST GRADER 12/16/2017 Procedures Solo Freire DO 2017 Office visit Solo Freire DO 12/02/2017 Office visit Alexi Schmidt APR N 11/19/2017 Office visit Alexi Schmidt APR N 06/11/2017 Office visit Alexi Blairran APR N 05/28/2017 Office visit Alexi Blairran APR N 05/21/2017 Office visit Raymond Lebron MD 05/13/2017 Office visit Alexi Schmidt APR N 12/15/2015 Hospital Dk Ye MD 02/04/2015 [facility] Dk Ye MD 05/11/2012 [facility] Dk Ye MD 10/26/2011 [facility] Leonel Waters MD
--- OUTSIDE RECORDS SUMMARY | 2020-05-06 12:28 | XMS REPORT ---
Author Author Karl Schmidt Organization [facility] Address [address] [place] [id number] Care Team Providers Care Hand Coremaker Name Role Phone Alexi Schmidt PCP Allergies [...] HC BMI BSA BMI Percentile O2 Sat(%) 06/15/2019 2:53:00 PM 130 mm[Hg] 80 mm[Hg] 94 {beats}/min 18 rpm 97.4 F 137 lbs 66 in 22.1122 kg/m2 1.7011 m2 99 % 05/20/2019 10:00:00 AM 110 mm[Hg] 80 mm[Hg] 82 {beats}/min 18 rpm 98.8 F 133 lbs 66 in 21.4665 kg/m2 1.68 m2 99 % 05/15/2019 9:21:00 AM 136 mm[Hg] 80 mm[Hg] 68 {beats}/min 16 rpm 98.2 F 134.375 lbs 66 in 21.69 kg/m2 1.6847 m2 99 % 05/06/2019 10:25:00 AM 120 mm[Hg] 80 mm[Hg] 84 {beats}/min 16 rpm 98.6 F 127 lbs 66 in 20.4981 kg/m2 1.64 m2 98 % 02/23/2019 1:26:00 PM 112 mm[Hg] 78 mm[Hg] 68 {beats}/min 16 rpm 97.8 F 134 lbs 66 in 21.63 kg/m2 1.6824 m2 99 % 01/05/2019 3:17:00 PM 110 mm[Hg] 80 mm[Hg] 86 {beats}/min 16 rpm 97.9 F 134 lbs 66 in 21.6279 kg/m2 1.68 m2 99 % 10/23/2018 1:14:00 PM 130 mm[Hg] 76 mm[Hg] 68 {beats}/min 18 rpm 98.8 F 147.8 lbs 66 in 23.86 kg/m2 1.7669 m2 99 % 12/16/2017 4:21:00 PM 150 mm[Hg] 90 mm[Hg] 102 {beats}/min 99.7 F 150.25 lbs 66 in 24.2507 kg/m2 1.78 m2 98 % 2017 2:34:00 PM 140 mm[Hg] 90 mm[Hg] 91 {beats}/min 98.1 F 155. 5 lbs 98 % 12/02/2017 1:41:00 PM 134 mm[Hg] 88 mm[Hg] 115 {beats}/min 18 rpm 97.5 F 147.125 lbs 66 in 23.75 kg/m2 1.7628 m2 99 % 11/19/2017 8:37:00 AM 128 mm[Hg] 88 mm[Hg] 90 {beats}/min 18 rpm 96.1 F 147.375 lbs 66 in 23.7867 kg/m2 1.76 m2 99 % 06/11/2017 2:14:00 PM 120 mm[Hg] 70 mm[Hg] 82 {beats}/min 16 rpm 14 2 lbs 66 in 22.92 kg/m2 1.7319 m2 99 % 05/28/2017 8:25:00 AM 118 mm[Hg] 78 mm[Hg] 93 {beats}/min 20 rpm 96.3 F 137.25 lbs 66 in 22.1525 kg/m2 1.70 m2 90 % 05/21/2017 10:31:00 AM 118 mm[Hg] 80 mm[Hg] 83 {beats}/min 18 rpm 98 F 130 lbs 66 in 20.98 kg/m2 1.6571 m2 99 % 05/13/2017 1:31:00 PM 122 mm[Hg] 78 mm[Hg] 74 {beats}/min 16 rpm 97 F 141.5 lbs 66 in 22.8385 kg/m2 1.73 m2 99 % Social History [...] RADEX ABDOMEN COMPL W/DCBTS&/ERC VIEWS R eturned 06/15/2019 12:00 AM BREATHING CAPACITY TEST Returned Results Summary Date and Description Results [...] g /dLHCT 45.30 %MCV 95.0 fLMCH 32.30 pgHC 34.0 g/dLRDW SD 50 fLRDW CV 14.20 [...] Vis Given Vis Pub CVX Influenza 06/11/2017 [employer] SKB Fluarix, morgan drivalent, preservative free [id number] Intramuscular Left Arm 10/21/2018 10/21/2018 141 Pneumococcal 07/02/2017 Merck & Co., Inc. MSD PNEUMOVAX 23 [id number] In tramuscular Right Arm 10/21/2018 10/21/2018 33 Influenza 10/28/2018 Not Entered NE Fluzone Quadrivalent [id number] Intr amuscular Left Arm 10/29/2018 10/21/2018 150 [...] 2:56PM Chest congestion Jun 15 2019 2:56PM Payers Insurance Name Company Name Plan Name Plan Number Policy Number Janes cy Group Number Start Date BCBS [employer] [place] [id number] N/ A History of Encounters Visit Date Visit Type Provider 06/15/2019 Office visit Alexi Schmidt APR N 05/20/2019 Office visit Alexi Schmidt APR N 05/15/2019 Office visit Alexi Schmidt APR N 05/06/2019 Hospital Leonel Waters MD 05/06/2019 Office visit Alexi Blairran APR N 02/23/2019 Office visit Alexi Schmdit APR N 01/05/2019 Office visit Alexi Schmidt APR N 12/31/2018 Hospital Dk Ye MD 10/23/2018 Office visit 10/23/2018 Office visit Felicia Danielle CITRIX ADMINISTRATOR 12/16/2017 Procedures Solo Freire DO 2017 Office visit Solo Freire DO 12/02/2017 Office visit Alexi Schmidt APR N 11/19/2017 Office visit Alexi Schmidt APR N 06/11/2017 Office visit Alexi Schmidt APR N 05/28/2017 Office visit Alexi Schmidt APR N 05/21/2017 Office visit Raymond Lebron MD 05/13/2017 Office visit Alexi Schmidt APR N 12/15/2015 Hospital Dk Ye MD 02/04/2015 Hospital Dk Ye MD 05/11/2012 Hospital Dk Ye MD 10/26/2011 [facility] Leonel Waters MD
--- OUTSIDE RECORDS SUMMARY | 2020-05-06 12:28 | XMS REPORT ---
Author Author Karl [facility] Address [address] [place], [place] [address] Care Team Providers Care Senior Digital Designer Name Role Phone Alexi Schmidt PCP Allergies and Adverse Reactions Name Reaction Notes SULFA (SULFONAMIDES) Plan of Treatment Not available. Medications Active Name Start Date Estimated Completion Date SIG Co mments atenolol 25 mg oral tablet take 1 tablet (25 mg) by oral route once daily Flomax 0.4 mg oral capsule 02/24/2019 05/25/2019 take 1 capsule (0.4 mg) by oral route once daily 1/2 hour following the same meal each day for 30 days topiramate 25 mg oral tablet 03/17/2019 TAKE 1 TABLE T BY MOUTH TWICE DAILY Name Start Date Expiration Date SIG Comments [...] 7 days patient reports giving him headaches Problem List Description Status Onset Glucosuria Active 05/21/2017 Groin pain, right Active 05/21/2017 Current smoker Active 05/21/2017 Vital Signs Date Time BP-Sys(mm[Hg] BP-[place]en(mm[Hg]) HR(bpm) RR(rpm) Temp WT HT HC BMI BSA BMI Percentile O2 Sat(%) 05/06/2019 10:25:00 AM 120 mmHg 80 mmHg [...] every day smoker Alcohol Use - Occasional Cat[employer] Worker History of Procedures Date Ordered Description [...] >60 mL/min/1.73meGFR AA* >60 MAGNESIUM 2.0 mg/dL 10/24/2018 8:10 AM WBC 8.9 RBC 4.77 HGB 15.4 HC T 45.3 MCV 95 MCH 32.3 MCHC 34.0 RDW SD 50 RDW CV 14.2 MPV 9.2 PLT 266 NRBC# 0.00 NRBC% 0.0 %NEUT 64.0 %LYMP 24.4 %MONO 7.4 %EOS 2.6 %BASO 1.1 #NEUT 5.68 #LYMP 2.16 #MONO 0.66 #EOS 0.23 #BASO 0.10 MANUAL DIFF NOT IND TSH 2.02 PSA TOTAL 1.41 TRIGLYCERIDES 69 CHOLESTEROL 193 HDL 46 TOT CHOL/HDL 4.2 LDL (CALC) 133 GLUCOSE 104 SODIUM 140 POTASSIUM 4.4 CHLORIDE 107 CO2 26 BUN 14 CREATININE 0.8 SGOT/AST 15 SGPT/ALT 15 ALK PHOS 97 TOTAL PROTEIN 6.8 ALBUMIN 4.1 TOTAL BILI 0.3 CALCIUM 8.9 AGE 52 GFR NonAA 102 GFR AA 124 eGFR 102 eGFR AA* >60 History Of Immunizations Name Date Admin Mfg Name Mfg Code Trade Name Lot# Route Inj Vis Given Vis Pub CVX Influenza 06/11/2017 [email or web address] SKB Fluarix, morgan drivalent, preservative free [id number] Intramuscular Left Arm 10/21/2018 10/21/2018 141 Pneumococcal 07/02/2017 Merck & Co., Inc. MSD PNEUMOVAX 23 [id number] In tramuscular Right Arm 10/21/2018 10/21/2018 33 Influenza 10/28/2018 Not Entered NE Fluzone Quadrivalent [id number] Intr amuscular Left Arm 10/29/2018 10/21/2018 150 [...] Small bowel obstruction May 06 2019 10:27AM Payers Insurance Name Company Name Plan Name Plan Number Policy Number Janes cy Group Number Start Date BCBS [facility]bs [facility] [id number] N/ A History of Encounters Visit Date Visit Type Provider 05/06/2019 Office visit Alexi Schmidt APR N 02/23/2019 Office visit Alexi Schmidt APR N 01/05/2019 Office visit Alexi Schmidt APR N 12/31/2018 Hospital Dk Ye MD 10/23/2018 Office visit 10/23/2018 Office visit Felicia Danielle COMMUNITY ARTIST 12/16/2017 Procedures Solo Freire DO 2017 Office visit Solo Freire DO 12/02/2017 Office visit Alexi Schmidt APR N 11/19/2017 Office visit Alexi Schmidt APR N 06/11/2017 Office visit Alexi Schmidt APR N 05/28/2017 Office visit Alexi Schmidt APR N 05/21/2017 Office visit Raymond Lebron MD 05/13/2017 Office visit Alexi Schmidt APR N 12/15/2015 Hospital Dk Ye MD 02/04/2015 [facility] Dk Ye MD 05/11/2012 [facility] Dk Ye MD 10/26/2011 [facility] Leonel Waters MD
--- OUTSIDE RECORDS SUMMARY | 2020-05-06 12:28 | XMS REPORT ---
Author Author Karl Schmidt Organization [facility] Address [address] [place] [id number] Care Team Providers Care Body Team Member Name Role Phone Alexi Schmidt PCP Allergies [...] every day smoker Alcohol Use - Occasional [employer] Worker History of Procedures Date Ordered Description [...] [employer]. MSD PNEUMOVAX 23 [id number] In tramuscular Right Arm 10/21/2018 10/21/2018 33 Influenza 10/28/2018 Not Entered NE Fluzone Quadrivalent [id number] Intr amuscular Left Arm 10/29/2018 10/21/2018 150 [...] Small bowel obstruction May 06 2019 10:27AM Constipation May 20 2019 10:04AM Constipation, unspecified constipation type May 15 2019 9:2 5AM Abdominal distention May 15 2019 9:25AM Payers Insurance Name Company Name Plan Name Plan Number Policy Number Janes cy Group Number Start Date BCBS [facility] [id number] N/ A History of Encounters Visit Date Visit Type Provider 05/20/2019 Office visit Alexi Schmidt APR N 05/15/2019 Office visit Alexi Schmidt APR N 05/06/2019 [facility] Leonel Waters MD 05/06/2019 Office visit Alexi Schmidt APR N 02/23/2019 Office visit Alexi Schmidt APR N 01/05/2019 Office visit Alexi Schmidt APR N 12/31/2018 [facility] Dk Ye MD 10/23/2018 Office visit 10/23/2018 Office visit Felicia Danielle UNDERWEAR FINISHER 12/16/2017 Procedures Solo Freire DO 2017 Office visit Solo Freire DO 12/02/2017 Office visit Alexi Schmidt APR N 11/19/2017 Office visit Alexi Blairran APR N 06/11/2017 Office visit Alexi Blairran APR N 05/28/2017 Office visit Alexi Schmidt APR N 05/21/2017 Office visit Raymond Lebron MD 05/13/2017 Office visit Alexi Schmidt APR N 12/15/2015 Hospital Dk Ye MD 02/04/2015 [facility] Dk Ye MD 05/11/2012 [facility] Dk Ye MD 10/26/2011 [facility] Leonel Waters MD
--- OUTSIDE RECORDS SUMMARY | 2020-05-06 12:28 | XMS REPORT ---
Author Author Karl Schmidt Organization [facility] Address [address] [place] [id number] Care Team Providers Care Exercise Specialist Name Role Phone Alexi Schmidt PCP Allergies and Adverse Reactions Name Reaction Notes SULFA (SULFONAMIDES) Plan of Treatment Not available. Medications Active Name Start Date Estimated Completion Date SIG Co mments atenolol 25 mg oral tablet take 1 tablet (25 mg) by oral route once daily topiramate 25 mg oral tablet 03/17/2019 TAKE 1 TABLE T BY MOUTH TWICE DAILY Miralax 17 gram/dose oral powder 05/15/2019 Take as directed ProAir HFA 90 mcg/actuation inhalation HFA aerosol inhaler 019 inhale 1 - 2 puffs (90 - 180 mcg) by inhalation route every 6 hours as needed Zyban 150 mg oral tablet extended release 12 hr 07/06/2019 10/04/2019 take 1 tablet (150 mg) by oral route 2 times per day for 30 days Name Start Date Expiration Date SIG Comments [...] 30 minutes before meals and at bedtime Discontinued Name Start Date Discontinued Date SIG [...] HC BMI BSA BMI Percentile O2 Sat(%) 06/25/2019 1:55:00 PM 130 mm[Hg] 80 mm[Hg] [...] rpm 97.5 F 147.125 lbs 66 in 23.7464 kg/m2 1.7628 m2 99 % 11/19/2017 8:37:00 [...] 06/15/2019 12:00 AM BREATHING CAPACITY TEST Reviewed Results Summary Date and Description Results [...] 124 eGFR 102 eGFR AA* >60 mL/min/1.73 [id number] 53 IU/LLIPASE 15 History Of Immunizations Name Date Admin Mfg Name Mfg Code Trade Name Lot# Route Inj Vis Given Vis Pub CVX Influenza 06/11/2017 [employer] SKB Fluarix, morgan drivalent, preservative free [id number] Intramuscular Left Arm 10/21/2018 10/21/2018 141 Pneumococcal 07/02/2017 Merck & Co., Inc. MSD PNEUMOVAX 23 [id number] In tramuscular Right Arm 10/21/2018 10/21/2018 33 Influenza 10/28/2018 Not Entered NE Fluzone Quadrivalent [id number] Intr amuscular Left Arm 10/29/2018 10/21/2018 150 [...] unspecified emphysema type Jun 25 2019 1:57PM Payers Insurance Name Company Name Plan Name Plan Number Policy Number Janes cy Group Number Start Date BCBS [facility]cbs [facility] [id number] N/ A History of Encounters Visit Date Visit Type Provider 06/25/2019 Office visit Alexi Blairran APR N 06/15/2019 Office visit Alexi Blairran APR N 05/20/2019 Office visit Alexi Schmidt APR N 05/15/2019 Office visit Alexi Schmidt APR N 05/06/2019 Hospital Leonel Waters MD 05/06/2019 Office visit Alexi Blairran APR N 02/23/2019 Office visit Alexi Blairran APR N 01/05/2019 Office visit Alexi Blairran APR N 12/31/2018 Hospital Dk Ye MD 10/23/2018 Office visit 10/23/2018 Office visit Felicia Danielle COOK SHORT ORDER 12/16/2017 Procedures Solo Freire DO 2017 Office visit Solo Freire DO 12/02/2017 Office visit Alexi Blariran APR N 11/19/2017 Office visit Alexi Blairran APR N 06/11/2017 Office visit Alexi Blairran APR N 05/28/2017 Office visit Alexi Blairran APR N 05/21/2017 Office visit Raymond Lebron MD 05/13/2017 Office visit Alexi Schmidt APR N 12/15/2015 Hospital Dk Ye MD 02/04/2015 [facility] Dk Ye MD 05/11/2012 [facility] Dk Ye MD 10/26/2011 [facility] Leonel Waters MD
--- OUTSIDE RECORDS SUMMARY | 2020-05-06 12:29 | XMS REPORT ---
Author Author Karl Schmidt [facility] Address [address] [place], [place] [address] Care Team Providers Care Yardage Caller Name Role Phone Alexi Schmidt PCP Allergies and Adverse Reactions Name Reaction Notes SULFA (SULFONAMIDES) Plan of Treatment Not available. Medications Active Name Start Date Estimated Completion Date SIG Co mments atenolol 25 mg oral tablet take 1 tablet (25 mg) by oral route once daily topiramate 25 mg oral tablet 12/01/2018 TAKE 1 TABLE T BY MOUTH TWICE DAILY Flomax 0.4 mg oral capsule 02/24/2019 05/25/2019 take 1 capsule (0.4 mg) by oral route once daily 1/2 hour following the same meal each day for 30 days Name Start Date [...] HC BMI BSA BMI Percentile O2 Sat(%) 02/23/2019 1:26:00 PM 112 mmHg 78 mmHg 68 bpm 16 rpm 97.8 F 134 lbs 66 in 21.6279 kg/m 1.6824 m 99 % 01/05/2019 3:17:00 PM 110 mmHg 80 mmHg 86 bpm 16 rpm 97.9 F 134 lbs 66 in 21.63 kg/m2 1.68 m2 99 % 10/23/2018 1:14:00 PM 130 mmHg [...] 12:00 AM ASSAY OF PSA TOTAL Returned Results Summary Date and Description Results [...] Vis Given Vis Pub CVX Influenza 06/11/2017 [employer] SKB Fluarix, morgan drivalent, preservative free [id number] Intramuscular Left Arm 10/21/2018 10/21/2018 141 Pneumococcal 07/02/2017 [employer]ck & Co., Inc. MSD PNEUMOVAX 23 [id number] In tramuscular Right Arm 10/21/2018 10/21/2018 33 Influenza 10/28/2018 Not Entered NE Fluzone Quadrivalent [id number] Intr amuscular Left Arm 10/29/2018 10/21/2018 150 [...] for prostate cancer Feb 23 2019 1:27PM Payers Insurance Name Company Name Plan Name Plan Number Policy Number Janes cy Group Number Start Date BCBS [facility] [id number] N/ A History of Encounters Visit Date Visit Type Provider 02/23/2019 Office visit Alexi Blairran APR N 01/05/2019 Office visit Alexi Blairran APR N 10/23/2018 Office visit 10/23/2018 Office visit Felicia Shashi FOOT CUTTER 12/16/2017 Procedures Solo Freire DO 2017 Office visit Solo Freire DO 12/02/2017 Office visit Alexi Blairran APR N 11/19/2017 Office visit Alexi Blairran APR N 06/11/2017 Office visit Alexi Blairran APR N 05/28/2017 Office visit Alexi Blairran APR N 05/21/2017 Office visit Raymond Lebron MD 05/13/2017 Office visit Alexi Schmidt APR N 12/15/2015 Hospital Dk Ye MD 02/04/2015 Hospital Dk Ye MD 05/11/2012 Hospital Dk Ye MD 10/26/2011 Hospital Leonel Waters MD
--- OUTSIDE RECORDS SUMMARY | 2020-05-06 12:29 | XMS REPORT ---
Author Author Karl Danielle Organization [facility] Address [address] [place], [place] [phone] Care Team Providers Care Customer Agent Name Role Phone Felicia Danielle PCP Allergies and Adverse Reactions Name Reaction Notes SULFA (SULFONAMIDES) Plan of Treatment Planned Activity Comments Planned Date Planned Time Plan/Goal CBC With Auto Differential 10/23/2018 12:00 AM CMP (comprehensive metabolic panel) 10/23/2018 12:00 AM .Lipid Panel 10/23/2018 12:00 AM TSH 10/23/2018 12:00 AM PSA 10/23/2018 12:00 AM Medications Active Name Start Date Estimated Completion Date SIG Co mments atenolol 25 mg oral tablet take 1 tablet (25 mg) by oral route once daily Name Start Date Expiration Date SIG Comments [...] route 3 times per day as needed Discontinued Name Start Date Discontinued Date SIG [...] HC BMI BSA BMI Percentile O2 Sat(%) 10/23/2018 1:14:00 PM 130 mmHg 76 mmHg 68 bpm 18 rpm 98.8 F 147.8 lbs 66 in 23.8553 kg/m 1.7669 m 99 % 12/16/2017 4:21:00 PM 150 mmHg 90 mmHg 102 bpm 99.7 F 150.25 lbs 66 i n 24.25 kg/m2 1.78 m2 98 % 2017 2:34:00 PM 140 mmHg [...] Reviewed 12/16/2017 12:00 AM Orthopedic Consult Reviewed Results Summary Date and Description Results [...] >60 MAGNESIUM 2.0 mg/dL History Of Immunizations Name Date Admin Mfg Name Mfg Code Trade Name Lot# Route Inj Vis Given Vis Pub CVX Influenza 06/11/2017 [employer] SKB Fluarix, morgan drivalent, preservative free [id number] Intramuscular Left Arm 10/21/2018 10/21/2018 141 Pneumococcal 07/02/2017 [employer]ck & Co., Inc. MSD PNEUMOVAX 23 [id number] In tramuscular Right Arm 10/21/2018 10/21/2018 33 History of Past Illness Name Date of [...] 2018 1:16PM Fatigue Oct 23 2018 1:16PM Payers Insurance Name Company Name Plan Name Plan Number Policy Number Janes cy Group Number Start Date BCBS [facility]cbs [facility] [id number] N/ A History of Encounters Visit Date Visit Type Provider 10/23/2018 Office visit 10/23/2018 Office visit Felicia Danielle HYDRAULIC PRESS OPERATOR 12/16/2017 Procedures Solo Freire DO 2017 Office visit Solo Freire DO 12/02/2017 Office visit Alexi Schmidt APR N 11/19/2017 Office visit Alexi Blairran APR N 06/11/2017 Office visit Alexi Blairran APR N 05/28/2017 Office visit Alexi Schmidt APR N 05/21/2017 Office visit Raymond Lebron MD 05/13/2017 Office visit Alexi Schmidt APR N 12/15/2015 Hospital Dk Ye MD 02/04/2015 Hospital Dk Ye MD 05/11/2012 [facility] Dk Ye MD 10/26/2011 [facility] Leonel Waters MD
--- OUTSIDE RECORDS SUMMARY | 2020-05-06 12:29 | XMS REPORT ---
Author Author Karl Freire Organization [facility] Address [address] [place], [place] [phone] Care Team Providers Care Hand Tube Bender Name Role Phone Solo Freire PCP Allergies and Adverse Reactions Name Reaction Notes SULFA (SULFONAMIDES) Plan of Treatment Planned Activity Comments Planned Date Planned Time Plan/Goal Nerve conduction studies; 7-8 studies 12/16/2017 12: 00 AM Needle Electromyography, each extremity, complete 12/16 12:00 AM Medications Active Name Start Date [...] route 3 times per day as needed baclofen 10 mg oral tablet 2017 take 1 tablet by oral route 3 times a day as needed for 7 days Name Start Date Expiration Date SIG Comments naproxen 500 mg oral tablet take 1 tablet (500 mg) by oral route 2 times per day as needed Neurontin 100 mg oral capsule 05/21/2017 05/28/2017 take one ta b PO TID Discontinued Name Start Date Discontinued [...] HC BMI BSA BMI Percentile O2 Sat(%) 12/16/2017 4:21:00 PM 150 mmHg 90 mmHg [...] rpm 96.3 F 137.25 lbs 66 in 22.15 kg/m2 1.7027 m 90 % 05/21/2017 10:31:00 AM 118 mmHg 80 mmHg 83 bpm 18 rpm 98 F 130 lbs 66 in 20.9823 kg/m 1.66 m2 99 % 05/13/2017 1:31:00 PM 122 mmHg 78 mmHg 74 bpm 16 rpm 97 F 141.5 lbs 66 in 22.84 kg/m2 1.7288 m 99 % Social History Name Description Comments Tobacco Current every day smoker 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 MSD Pneumovax 23 [id number] In tramuscular Right Arm 10/21/2017 10/21/2017 33 History of Past Illness Name Date [...] upper extremity Dec 16 201 8 4:25PM Payers Insurance Name Company Name Plan Name Plan Number Policy Number Janes cy Group Number Start Date BCBS [facility] [id number] N/ A History of Encounters Visit Date Visit Type Provider 12/16/2017 Procedures Solo Freire DO 2017 Office visit Solo Freire DO 12/02/2017 Office visit Alexi Schmidt APR N 11/19/2017 Office visit Alexi Schmidt APR N 06/11/2017 Office visit Alexi Schmidt APR N 05/28/2017 Office visit Alexi Schmidt APR N 05/21/2017 Office visit Raymond Lebron MD 05/13/2017 Office visit Alexi Schmidt APR N 12/15/2015 [facility] Dk Ye MD 02/04/2015 [facility] Dk Ye MD 05/11/2012 [facility] Dk Ye MD 10/26/2011 [facility] Leonel Waters MD
--- OUTSIDE RECORDS SUMMARY | 2020-05-06 12:29 | XMS REPORT ---
Author Author Karl Schmidt [facility] Address [address] [place], [place] [address] Care Team Providers Care Station Installation Supervisor Name Role Phone Alexi Schmidt PCP Allergies [...] HC BMI BSA BMI Percentile O2 Sat(%) 01/05/2019 3:17:00 PM 110 mmHg 80 mmHg [...] AM COMPLETE CBC W/AUTO DIFF WBC Returned 10/23/2018 12:00 AM COMPREHEN METABOLIC PANEL Returned 10/23/2018 12:00 AM LIPID PANEL Returned 10/23/2018 12:00 AM ASSAY THYROID STIM HORMONE Returned 10/23/2018 12:00 AM ASSAY OF PSA COMPLEXED Returned Results Summary Date and Description Results [...] Vis Given Vis Pub CVX Influenza 06/11/2017 [employer] Fluarix, morgan drivalent, preservative free [id number] Intramuscular Left Arm 10/21/2018 10/21/2018 141 Pneumococcal 07/02/2017 [employer]ck & Co., Inc. MSD PNEUMOVAX 23 [id number] In tramuscular Right Arm 10/21/2018 10/21/2018 33 Influenza 10/28/2018 Not Entered NE Fluzone Quadrivalent [id number] Intr amuscular Left Arm 10/29/2018 10/21/2018 150 [...] 1:16PM Influenza A Jan 05 2019 3:19PM Payers Insurance Name Company Name Plan Name Plan Number Policy Number Janes cy Group Number Start Date BCBS [employer] [place] [id number] N/ A History of Encounters Visit Date Visit Type Provider 01/05/2019 Office visit Alexi Schmidt APR N 10/23/2018 Office visit 10/23/2018 Office visit Felicia Danielle VISUAL MERCHANDISE MANAGER 12/16/2017 Procedures Solo Mouan DO 2017 Office visit Solocarlos Freire DO 12/02/2017 Office visit Alexi Schmidt APR N 11/19/2017 Office visit Alexi Schmidt APR N 06/11/2017 Office visit Alexi Schmidt APR N 05/28/2017 Office visit Alexi Schmidt APR N 05/21/2017 Office visit Raymond Lebron MD 05/13/2017 Office visit Alexi Schmidt APR N 12/15/2015 Hospital Dk Ye MD 02/04/2015 [facility] Dk Ye MD 05/11/2012 [facility] Dk Ye MD 10/26/2011 [facility] Leonel Waters MD
--- OUTSIDE RECORDS SUMMARY | 2020-05-06 12:29 | XMS REPORT ---
Author Author Karl Freire Organization [facility] Address [address] [place], [place] [address] Care Team Providers Care Shoe Worker Name Role Phone FreireChepe israelSolo PCP Allergies and Adverse Reactions Name Reaction [...] HC BMI BSA BMI Percentile O2 Sat(%) 2017 2:34:00 PM 140 mmHg 90 mmHg 91 bpm 98.1 F 155.5 lbs 98 % 12/02/2017 1:41:00 PM 134 mmHg 88 mmHg 115 bpm 18 rpm 97.5 F 147.125 lbs 66 in 23.7464 kg/m 1.7628 m 99 % 11/19/2017 8:37:00 AM 128 mmHg 88 mmHg 90 bpm 18 rpm 96.1 F 147.375 lbs 66 in 23.79 kg/m2 1.76 m2 99 % 06/11/2017 2:14:00 PM 120 mmHg 70 mmHg 82 bpm 16 rpm 142 lbs 66 in 22.9192 kg/m 1.7319 m 99 % 05/28/2017 8:25:00 AM 118 mmHg 78 mmHg 93 bpm 20 rpm 96.3 F 137.25 lbs 66 in 22.15 kg/m2 1.70 m2 90 % 05/21/2017 10:31:00 AM 118 mmHg 80 mmHg 83 bpm 18 rpm 98 F 130 lbs 66 in 20.9823 kg/m 1.6571 m 99 % 05/13/2017 1:31:00 PM 122 mmHg 78 mmHg 74 bpm 16 rpm 97 F 141.5 lbs 66 in 22.84 kg/m2 1.73 m2 99 % Social History Name Description Comments Tobacco Current every day smoker Alcohol Use - Occasional [employer] Worker History of Procedures Date Ordered Description [...] Merck & Co., Inc. MSD Pneumovax 23 [id number] In tramuscular Right Arm 10/21/2017 10/21/2017 33 [...] 2017 2:39PM Spasm of muscle 2017 2:39PM Payers Insurance Name Company Name Plan Name Plan Number Policy Number Janes cy Group Number Start Date BCBS [facility] [id number] N/ A History of Encounters Visit Date Visit Type Provider 2017 Office visit Solo Freire DO 12/02/2017 Office visit Alexi Blairran APR N 11/19/2017 Office visit Alexi Schmidt APR N 06/11/2017 Office visit Alexi Schmidt APR N 05/28/2017 Office visit Alexi Blairran APR N 05/21/2017 Office visit Raymond Lebron MD 05/13/2017 Office visit Alexi Blairran APR N 12/15/2015 [facility] Dk Ye MD 02/04/2015 [facility] Dk Ye MD 05/11/2012 [facility] Dk Ye MD 10/26/2011 [facility] Leonel Waters MD
--- OUTSIDE RECORDS SUMMARY | 2020-05-06 12:29 | XMS REPORT ---
Author Author Karl Freire Organization [facility] Address [address] [place], [place] [id number] Care Team Providers Care Link Assembler Name Role Phone FreireChepe israelSolo PCP Allergies [...] every day smoker Alcohol Use - Occasional [place] Therapist Worker History of Procedures Date Ordered Description [...] [employer] MSD Pneumovax 23 [id number] In tramuscular Right Arm 10/21/2017 10/21/2017 34 [...] Lumbar back pain Dec 02 2017 1:44PM Payers Insurance Name Company Name Plan Name Plan Number Policy Number [place] Group Number Start Date BCBS [facility] [id number] N/ A History of Encounters Visit Date [...] Hospital Dk Ye MD 02/04/2015 [facility] Dk Ye MD 05/11/2012 [facility] Dk Ye MD 10/26/2011 [facility] Leonel Waters MD
--- OUTSIDE RECORDS SUMMARY | 2020-05-06 12:30 | XMS REPORT | Continuity of Care Document ---
Demographics Preferred Language Unknown Marital Status Unknown Lutheran Affiliation Unknown Race Unknown Ethnic Group Unknown Author Organization Unknown Address Unknown Phone Unavailable Allergies Active Description Code Type Severity Reaction Onset Reported/Identified Relationship to Patient Clinical Status Yes BACTRIM [id number] BRANDNAME N/A N/A Yes No Known Environmental Allergies [id number] N/A N/A Yes No Known Food Allergies [id number] N/A N/A Yes SULFA (sulfonamide) [id number] CLAS S N/A RASH Yes No Known Drug Allergies [id number] Drug Allergy Unknown N/A 11/16/2017 Medications There is no data. Problems Date Dx Coded Attending Type Code Diagnosis Diagnosed By 11/16/2017 HAYDEN WATERS, YANA Scott Ot M54. 5 LOW BACK PAIN 11/16/2017 HAYDEN WATERS, YANA Scott Ot R51 HEADACHE 11/18/2017 HAYDEN WATERS, YANA Scott Ot M54. 5 LOW BACK PAIN 11/18/2017 HAYDEN WATERS, YANA Scott Ot R51 HEADACHE 01/09/2018 P M542 Cervi calgia 01/09/2018 S M545 Low b ack pain 01/09/2018 S [id number] Oth er muscle spasm 04/16/2019 S I471 Supra ventricular tachycardia 04/16/2019 P R072 Preco rdial pain 04/22/2019 S G4730 Slee p apnea, unspecified 04/22/2019 P G4733 Obst ructive sleep apnea (adult) (pediatric) 04/22/2019 S R0683 Snoring 04/22/2019 S R5383 Othe r fatigue 04/28/2019 P R4182 Alte red mental status, unspecified 04/28/2019 S [id number] He at exhaustion, unspecified, initial encounter 04/28/2019 S [id number] Ex posure to excessive natural heat, initial encounter 04/28/2019 S N29976 Sujey p (commercial) as the place of occurrence of the external cause 04/28/2019 S Y990 Civil jenna activity done for income or pay 04/28/2019 S R0602 Shor tness of breath 04/28/2019 S R079 Chest pain, unspecified 04/28/2019 P [id number] He atstroke and sunstroke, initial encounter 04/28/2019 S Y66891 Esteban otine dependence, cigarettes, uncomplicated 04/28/2019 P [id number] He atstroke and sunstroke, initial encounter 05/06/2019 P K5900 Cons tipation, unspecified 05/06/2019 S R109 Unspe cified abdominal pain 05/09/2019 P K567 Ileus , unspecified 05/09/2019 S Z720 Tobac co use 05/09/2019 S F47248 Oth er assisted (current) drug therapy 05/09/2019 S Z8249 Fami ly history of ischemic heart disease and other diseases of the circulatory system 05/09/2019 S Z833 Famil y history of diabetes mellitus 05/09/2019 S Z882 Aller gy status to sulfonamides status 05/13/2019 P K5900 Cons tipation, unspecified 05/13/2019 S R110 Nausea 05/13/2019 S [id number] Oth er difficulties with micturition 05/13/2019 S R509 Fever , unspecified 05/13/2019 S E41302 Esteban otine dependence, cigarettes, uncomplicated 05/13/2019 S K5900 Cons tipation, unspecified 05/13/2019 P R1031 Righ t lower quadrant pain 05/13/2019 S N32479 Lef t lower quadrant rebound abdominal tenderness Procedures There is no data. Results Test Result Range Complete urinalysis with reflex to cultu re - 11/15/17 22:45 Urine color determination YELLOW NRG Urine clarity determination CLEAR NR G Urine pH measurement by test strip 8 5-9 Specific gravity of urine by test strip 1.010 1.016-1.022 Urine protein assay by test strip, semi-quantitative NEGATIVE NEGATIVE Urine glucose detection by automated test strip NE GATIVE NEGATIVE Erythrocytes detection in urine sediment by light micr oscopy NEGATIVE NEGATIVE Urine ketones detection by automated test strip NE GATIVE NEGATIVE Urine nitrite detection by test strip NEGATIVE NEGATIVE Urine total bilirubin detection by test strip NEGA TIVE NEGATIVE Urine urobilinogen measurement by automated test strip (mass/volume) NORMAL NORMAL Urine leukocyte esterase detection by dipstick NEG ATIVE NEGATIVE Automated urine sediment erythrocyte cou nt by microscopy (number/high power field) NONE NRG Automated urine sediment leukocyte count by microscopy (number/high power field) RARE NRG Bacteria detection in urine sediment by light microsco py NEGATIVE NRG Crystals detection in urine sediment by light microsco py NONE NRG Casts detection in urine sediment by light microscopy NONE NRG Mucus detection in urine sediment by light microscopy NEGATIVE NRG Complete urinalysis with reflex to culture NO NRG Complete blood count (CBC) with automate d white blood cell (WBC) differential - 11/15/17 22:46 Blood leukocytes automated count (number/volume) 9.8 10*3/uL 4.3-11.0 Blood erythrocytes automated count (number/volume) 5.22 10*6/uL 4.35-5.85 Venous blood hemoglobin measurement (mass/volume) 16.8 g/dL 13.3-17.7 Blood hematocrit (volume fraction) 47 % 40-54 Automated erythrocyte mean corpuscular volume 90 [ foz_us] 80-99 Automated erythrocyte mean corpuscular h emoglobin (mass per erythrocyte) 32 pg 25-34 Automated erythrocyte mean corpuscular h emoglobin concentration measurement (mass/volume) 36 g/dL 32-36 Automated erythrocyte distribution width ratio 14. 6 % 10.0- 14.5 Automated blood platelet count (count/volume) 268 10*3/uL 130-400 Automated blood platelet mean volume measurement 9.4 [foz_us] 7.4-10.4 Automated blood neutrophils/100 leukocytes 59 % 42-75 Automated blood lymphocytes/100 leukocytes 31 % 12-44 Blood monocytes/100 leukocytes 7 % 0-12 Automated blood eosinophils/100 leukocytes 2 % 0-10 Automated blood basophils/100 leukocytes 1 % 0-10 Blood neutrophils automated count (number/volume) 5.8 10*3 1.8-7.8 Blood lymphocytes automated count (number/volume) 3.1 10*3 1.0-4.0 Blood monocytes automated count (number/volume) 0. 7 10*3 0.0-1.0 Automated eosinophil count 0.2 10*3/uL 0 .0-0.3 Automated blood basophil count (count/volume) 0.1 10*3/uL 0.0-0.1 Comprehensive metabolic panel - 11/15/17 22:46 Serum or plasma sodium measurement (moles/volume) 139 mmol/L 135-145 Serum or plasma potassium measurement (moles/volume) 3.8 mmol/L 3.6-5.0 Serum or plasma chloride measurement (moles/volume) 105 mmol/L 98-107 Carbon dioxide 22 mmol/L 21-32 Serum or plasma anion gap determination (moles/volume) 12 mmol/L 5-14 Serum or plasma urea nitrogen measurement (mass/volume ) 9 mg/dL 7-18 Serum or plasma creatinine measurement (mass/volume) 0.85 mg/dL 0.60-1.30 Serum or plasma urea nitrogen/creatinine mass ratio 11 NRG Serum or plasma creatinine measurement w ith calculation of estimated glomerular filtration rate > NRG Serum or plasma glucose measurement (mass/volume) 92 mg/dL 70-105 Serum or plasma calcium measurement (mass/volume) 9.3 mg/dL 8.5-10.1 Serum or plasma total bilirubin measurement (mass/volu me) 0.5 mg/dL 0.1-1.0 Serum or plasma alkaline phosphatase bryon surement (enzymatic activity/volume) 97 U/L 40-136 Serum or plasma aspartate aminotransfera se measurement (enzymatic activity/volume) 17 U/L 5-34 Serum or plasma alanine aminotransferase measurement (enzymatic activity/volume) 15 U/L 0-55 Serum or plasma protein measurement (mass/volume) 7.0 g/dL 6.4-8.2 Serum or plasma albumin measurement (mass/volume) 4.1 g/dL 3.2-4.5 Complete blood count (CBC) with automate d white blood cell (WBC) differential - 08/25/19 10:20 Blood leukocytes automated count (number/volume) 9.5 10*3/uL 4.3-11.0 Blood erythrocytes automated count (number/volume) 4.88 10*6/uL 4.35-5.85 Venous blood hemoglobin measurement (mass/volume) 15.3 g/dL 13.3-17.7 Blood hematocrit (volume fraction) 46 % 40-54 Automated erythrocyte mean corpuscular volume 93 [ foz_us] 80-99 Automated erythrocyte mean corpuscular h emoglobin (mass per erythrocyte) 31 pg 25-34 Automated erythrocyte mean corpuscular h emoglobin concentration measurement (mass/volume) 34 g/dL 32-36 Automated erythrocyte distribution width ratio 14. 6 % 10.0- 14.5 Automated blood platelet count (count/volume) 276 10*3/uL 130-400 Automated blood platelet mean volume measurement 8.7 [foz_us] 7.4-10.4 Automated blood neutrophils/100 leukocytes 68 % 42-75 Automated blood lymphocytes/100 leukocytes 23 % 12-44 Blood monocytes/100 leukocytes 7 % 0-12 Automated blood eosinophils/100 leukocytes 1 % 0-10 Automated blood basophils/100 leukocytes 1 % 0-10 Blood neutrophils automated count (number/volume) 6.5 10*3 1.8-7.8 Blood lymphocytes automated count (number/volume) 2.2 10*3 1.0-4.0 Blood monocytes automated count (number/volume) 0. 7 10*3 0.0-1.0 Automated eosinophil count 0.1 10*3/uL 0 .0-0.3 Automated blood basophil count (count/volume) 0.1 10*3/uL 0.0-0.1 [id number] - 08/25/19 10:20 Serum or plasma urea nitrogen measurement (mass/volume ) 7 mg/dL 7-18 Serum or plasma creatinine measurement (mass/volume) 0.82 mg/dL 0.60-1.30 Serum or plasma urea nitrogen/creatinine mass ratio 9 NRG Serum or plasma creatinine measurement w ith calculation of estimated glomerular filtration rate > NRG LymeAb(IgG/M)+HME(IgG/M)+RM... - 0 08:25 RMSF, IgG, EIA Negative Negative [facility] Spotted Fever, IgM 0.28 index 0.00-0.89 Lyme IgG/IgM Ab <0.91 ISR 0.00-0.90 Lyme Disease Ab, Quant, IgM 1.12 index 0 .00-0.79 E. chaffeensis (HME) IgG Titer Negative Neg:<1:64 E. chaffeensis (HME) IgM Titer Negative Neg:<1:20 Lyme, Western Blot, Serum - 12/07/19 08: 25 IgG P93 Ab. Absent IgG P66 Ab. Absent IgG P58 Ab. Absent IgG P45 Ab. Absent IgG P41 Ab. Absent IgG P39 Ab. Absent IgG P30 Ab. Absent IgG P28 Ab. Absent IgG P23 Ab. Absent IgG P18 Ab. Absent Lyme IgG WB Interp. Negative IgM P41 Ab. Absent IgM P39 Ab. Absent IgM P23 Ab. Present Lyme IgM WB Interp. Negative Complete blood count (CBC) with automate d white blood cell (WBC) differential - 05/06/20 10:48 Blood leukocytes automated count (number/volume) 9.8 10*3/uL 4.3-11.0 Blood erythrocytes automated count (number/volume) 5.54 10*6/uL 4.35-5.85 Venous blood hemoglobin measurement (mass/volume) 17.8 g/dL 13.3-17.7 Blood hematocrit (volume fraction) 51 % 40-54 Automated erythrocyte mean corpuscular volume 91 [ foz_us] 80-99 Automated erythrocyte mean corpuscular h emoglobin (mass per erythrocyte) 32 pg 25-34 Automated erythrocyte mean corpuscular h emoglobin concentration measurement (mass/volume) 35 g/dL 32-36 Automated erythrocyte distribution width ratio 14. 9 % 10.0- 14.5 Automated blood platelet count (count/volume) 285 10*3/uL 130-400 Automated blood platelet mean volume measurement 8.9 [foz_us] 7.4-10.4 Automated blood neutrophils/100 leukocytes 68 % 42-75 Automated blood lymphocytes/100 leukocytes 24 % 12-44 Blood monocytes/100 leukocytes 6 % 0-12 Automated blood eosinophils/100 leukocytes 1 % 0-10 Automated blood basophils/100 leukocytes 1 % 0-10 Blood neutrophils automated count (number/volume) 6.6 10*3 1.8-7.8 Blood lymphocytes automated count (number/volume) 2.4 10*3 1.0-4.0 Blood monocytes automated count (number/volume) 0. 6 10*3 0.0-1.0 Automated eosinophil count 0.1 10*3/uL 0 .0-0.3 Automated blood basophil count (count/volume) 0.1 10*3/uL 0.0-0.1 PT panel in platelet poor plasma by coag ulation assay - 05/06/20 10:48 Prothrombin time (PT) in platelet poor plasma by coagu lation assay 13.2 s 12.2-14.7 INR in platelet poor plasma or blood by coagulation as say 1.0 0.8-1.4 Activated partial thromboplastin time (a PTT) in platelet poor plasma bycoagulation assay - 05/06/20 10:48 Activated partial thromboplastin time (a PTT) in platelet poor plasma bycoagulation assay 28 s 24-35 Comprehensive metabolic panel - 05/06/20 10:48 Serum or plasma sodium measurement (moles/volume) 140 mmol/L 135-145 Serum or plasma potassium measurement (moles/volume) 3.9 mmol/L 3.6-5.0 Serum or plasma chloride measurement (moles/volume) 108 mmol/L 98-107 Carbon dioxide 19 mmol/L 21-32 Serum or plasma anion gap determination (moles/volume) 13 mmol/L 5-14 Serum or plasma urea nitrogen measurement (mass/volume ) 16 mg/dL 7-18 Serum or plasma creatinine measurement (mass/volume) 0.91 mg/dL 0.60-1.30 Serum or plasma urea nitrogen/creatinine mass ratio 18 NRG Serum or plasma creatinine measurement w ith calculation of estimated glomerular filtration rate > NRG Serum or plasma glucose measurement (mass/volume) 105 mg/dL 70-105 Serum or plasma calcium measurement (mass/volume) 9.3 mg/dL 8.5-10.1 Serum or plasma total bilirubin measurement (mass/volu me) 0.3 mg/dL 0.1-1.0 Serum or plasma alkaline phosphatase bryon surement (enzymatic activity/volume) 111 U/L 40-136 Serum or plasma aspartate aminotransfera se measurement (enzymatic activity/volume) 12 U/L 5-34 Serum or plasma alanine aminotransferase measurement (enzymatic activity/volume) 11 U/L 0-55 Serum or plasma protein measurement (mass/volume) 7.2 g/dL 6.4-8.2 Serum or plasma albumin measurement (mass/volume) 4.2 g/dL 3.2-4.5 CALCIUM CORRECTED 9.1 mg/dL 8.5-10.1 Magnesium - 05/06/20 10:48 Magnesium 2.2 mg/dL 1.6-2.4 Serum or plasma lithium measurement (mol es/volume) - 05/06/20 10:48 BNP PT 13.2 pg/mL <100.0 Myoglobin, serum - 05/06/20 10:48 Myoglobin, serum 19.1 ng/mL 10.0-92.0 Serum or plasma troponin i.cardiac measu rement (mass/volume) - 05/06/20 10:48 Serum or plasma troponin i.cardiac measurement (mass/v olume) < ng/mL <0.028 Encounters ACCT No. Visit Date/Time Discharge Status Pt. Type Provider Facility Loc./Unit Complaint [id number] 04/13/2020 15:38:26 Document Registration [id number] 12/18/2019 12:09:51 Document Registration [id number] 12/18/2019 12:03:08 Document Registration [id number] 12/07/2019 08:15:21 Document Registration [id number] 11/17/2019 13:57:49 Document Registration [id number] 11/16/2019 14:47:22 Document Registration [id number] 11/16/2019 14:40:42 Document Registration [id number] 09/13/2019 22:15:02 Document Registration [id number] 09/13/2019 19:19:32 Document Registration [id number] 09/01/2019 13:11:05 Document Registration [id number] 09/01/2019 13:07:19 Document Registration [id number] 08/25/2019 22:02:35 Document Registration [id number] 08/25/2019 21:57:28 Document Registration [id number] 06/15/2019 15:45:26 Document Registration [id number] 06/12/2019 09:47:31 Document Registration [id number] 06/12/2019 09:41:38 Document Registration [id number] 05/21/2019 18:48:25 Document Registration [id number] 05/21/2019 18:29:55 Document Registration [id number] 05/20/2019 10:38:35 Document Registration [id number] 05/13/2019 17:41:02 Document Registration [id number] 05/13/2019 17:25:55 Document Registration [id number] 05/06/2019 14:20:10 Document Registration [id number] 05/06/2019 10:42:54 Document Registration [id number] 05/04/2019 14:39:53 Document Registration [id number] 04/28/2019 19:34:14 Document Registration [id number] 04/28/2019 17:54:08 Document Registration [id number] 03/30/2019 13:40:29 Document Registration [id number] 03/30/2019 13:34:10 Document Registration [id number] 02/23/2019 13:51:18 Document Registration [id number] 12/31/2018 17:05:38 Document Registration [id number] 12/31/2018 16:59:41 Document Registration [id number] 10/24/2018 08:04:49 Document Registration [id number] 12/09/2017 14:02:02 Document Registration [id number] 11/14/2017 04:51:51 Document Registration [id number] 11/14/2017 04:42:53 Document Registration [id number] 06/11/2017 14:39:58 Document Registration [id number] 08/25/2019 10:15:00 019 23:59:59 CLS Outpatient MATTHIEU PATEL RAHEEM Alonso [facility] RAD DYSPNEA [id number] 11/15/2017 20:17:00 018 02:40:00 DIS Emergency HAYDEN WATERS, YANA Scott [facility] ER HEADACHE/NECK PAIN/LOWE R BACK PAIN [id number] 05/06/2020 10:58:00 Document Registration [id number] 12/31/2019 12:14:39 12/31/2019 23:59: 59 CLS Outpatient Dk Ye [id number] 11/17/2019 14:11:56 11/17/2019 23:59: 59 CLS Outpatient Alexi Schmidt [id number] 09/21/2019 09:54:07 09/21/2019 23:59: 59 CLS Outpatient Alexi Schmidt [id number] 09/10/2019 12:01:46 09/10/2019 23:59: 59 CLS Outpatient Dk Ye [id number] 09/03/2019 14:26:17 09/03/2019 23:59: 59 JUAN Outpatient Alexi Schmidt [id number] 08/12/2019 16:10:32 08/12/2019 23:59: 59 CLS Outpatient Dk Ye [id number] 07/27/2019 17:13:57 07/27/2019 23:59: 59 CLS Outpatient Dk Ye [id number] 06/25/2019 14:37:46 06/25/2019 23:59: 59 JUAN Outpatient Alexi Schmidt [id number] 06/15/2019 15:43:12 06/15/2019 23:59: 59 JUAN Outpatient Alexi Schmidt [id number] 05/20/2019 10:56:12 05/20/2019 23:59: 59 CLS Outpatient Alexi Schmidt [id number] 05/15/2019 10:04:42 05/15/2019 23:59: 59 CLS Outpatient Alexi Schmidt [id number] 05/07/2019 11:48:16 05/07/2019 23:59: 59 CLS Outpatient Leonel Waters [id number] 05/06/2019 11:09:57 05/06/2019 23:59: 59 CLS Outpatient Alexi Schmidt [id number] 03/24/2019 14:52:05 03/24/2019 23:59: 59 CLS Outpatient Dk Ye [id number] 01/05/2019 15:58:17 01/05/2019 23:59: 59 CLS Outpatient Alexi Schmidt [id number] 10/23/2018 14:05:36 10/23/2018 23:59: 59 CLS Outpatient ShashiFelicia [id number] 12/16/2017 16:54:30 12/16/2017 23:59: 59 CLS Outpatient Mouna, Solo [id number] 12/11/2017 10:17:49 12/11/2017 23:59: 59 CLS Outpatient Alexi Schmidt [id number] 2017 15:28:23 2017 23:59: 59 CLS Outpatient Mouna, Solo [id number] 11/19/2017 09:35:40 11/19/2017 23:59: 59 CLS Outpatient Alexi Schmidt [id number] 06/11/2017 15:07:07 06/11/2017 23:59: 59 CLS Outpatient Roxana Alexi [id number] 05/28/2017 09:19:00 05/28/2017 23:59: 59 CLS Outpatient SchmidtAlexi [id number] 05/22/2017 11:41:18 05/22/2017 23:59: 59 CLS Outpatient Raymond Lebron [id number] 05/13/2017 14:29:39 05/13/2017 23:59: 59 CLS Outpatient Roxana Alexi [id number] 01/18/2016 15:57:40 01/18/2016 23:59: 59 CLS Outpatient Dk Ye [id number] 05/30/2015 22:28:50 05/30/2015 23:59: 59 CLS Outpatient Dk Ye [id number] 12/11/2019 21:05:00 Document Registration
--- OUTSIDE RECORDS SUMMARY | 2020-05-06 12:30 | XMS REPORT ---
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 Worker History of Procedures Date Ordered Description [...] [employer] MSD Pneumovax 23 [id number] In tramuscular Right Arm 10/21/2017 10/21/2017 34 [...] [place] Group Number Start Date BCBS [facility] [id number] N/ A History of Encounters Visit Date Visit Type Provider 12/16/2017 Procedures Solo Freire DO 2017 Office visit Solo Freire DO 12/02/2017 Office visit Alexi Schmidt APR N 11/19/2017 Office visit Alexi Schmidt APR N 06/11/2017 Office visit Alexi Schmidt APR N 05/28/2017 Office visit Alexi Schmidt APR N 05/21/2017 Office visit Raymond Lebron MD 05/13/2017 Office visit Alexi Schmidt APR N 12/15/2015 [facility] Dk Ye MD 02/04/2015 [facility] Dk Ye MD 05/11/2012 [facility] Dk Ye MD 10/26/2011 [facility] Leonel Waters MD
== END 2020-05-06 11:52 | disposition home or self-care (01) ==
LOC: EDUNIT# 10:35 → ER 10:38
DX: J44.1 Chronic obstructive pulmonary disease with (acute) exacerbation (principal); Z88.2 Allergy status to sulfonamides
CPT/HCPCS: 36415; 71045; 80053; 83735; 83874; 83880; 84484; 85025; 85610; 85730; 93041